=== PATIENT | female | born 1980 | race Caucasian/White ===

== ENCOUNTER 2016-09-27 18:43 | Emergency (ER) | payer MEDICARE, MEDICAID ==
[2016-09-27] MEDS ORDERED: Sodium Chloride 0.9% 10 ML Syringe FLUSH PRN (19:24)
[2016-09-27] MEDS ORDERED: Sodium Chloride 0.9% 1,000 ML IV SCH (19:30)
[2016-09-27 23:28] VITALS: BP 126/91
--- NOTE | 2016-09-27 23:47 | EDM.PDOC ---
ED HPI GENERAL MEDICAL PROBLEM - General Chief Complaint: Neurological Problem Stated Complaint: MEDICAL VIA NORTH Time Seen by Provider: 09/27/16 19:16 Source of Information: Reports: Patient, EMS, Significant Other History Limitations: Reports: No Limitations - History of Present Illness INITIAL COMMENTS - FREE TEXT/NARRATIVE: This lady arrived via EMS. The history is that she's had several seizure-like episodes during the day. She has been off of Keppra for some time. She is well known to the ER and there is the belief that it's probably and at situation of pseudoseizures. The patient is not able to give any kind of history. 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 OB/BYN History: ovarian cystectomy Musculoskeletal History: Reports: Back Pain, Chronic Other Musculoskeletal History: elbow,ribs Other Neuro History: Pseudo-seizures Psychiatric History: Reports: Anxiety Other Psychiatric History: pseudo-seizures Oncologic (Cancer) History: Reports: Other (See Below) Other Oncologic History: melanoma left shoulder - Infectious Disease History Infectious Disease History: Reports: Chicken Pox - Past Surgical History HEENT Surgical History: Reports: Other (See Below) GI Surgical History: Reports: Appendectomy, Cholecystectomy Female Surgical History: Reports: Section Social & Family History - Tobacco Use Smoking Status *Q: Current Every Day Smoker Years of Tobacco use: 17 Packs/Tins Daily: 1 Used Tobacco, but Quit: No Second Hand Smoke Exposure: Yes - Caffeine Use Caffeine Use: Reports: Soda - Alcohol Use Days Per Week of Alcohol Use: 0 - Recreational Drug Use Recreational Drug Use: No ED ROS GENERAL - Review of Systems Review Of Systems: Unable To Obtain - Physical Exam Exam: See Below Exam Limited By: Altered Mental Status General Appearance: Other (The patient is awake but minimally responsive. She makes some motion says that she is trying to talk.) Eye Exam: Bilateral Eye: Normal Inspection Throat/Mouth: Normal Inspection Head Exam: Atraumatic Neck: Normal Inspection Respiratory/Chest: Lungs Clear Cardiovascular: Regular Rate, Rhythm GI/Abdominal: Non-Tender Neuro Exam (Abbreviated): Other (Patient is awake she may be post ictal.) DTR: 2+: Bicep (R), Bicep (L), Patella (R), Patella (L) Back Exam: Normal Inspection Extremities: Normal Inspection Skin Exam: Warm, Dry Course - Vital Signs Last Recorded V/S: Last Vital Signs Temp 36.7 C 09/27/16 23:28 Pulse 77 09/27/16 23:28 Resp 15 09/27/16 23:28 BP 126/91 H 09/27/16 23:28 Pulse Ox 96 09/27/16 23:28 - Orders/Labs/Meds Orders: Active Orders 24 hr Category Date Time Status Sodium Chloride 0.9% [Normal Saline] 1,000 ml Med 09/27/16 19:30 Active IV ASDIRECTED Sodium Chloride 0.9% [Saline Flush] Med 09/27/16 19:24 Active 10 ml FLUSH ASDIRECTED PRN Saline Lock Insert [OM.PC] Urgent Oth 09/27/16 19:23 Ordered Medication Orders Sodium Chloride (Normal Saline) 1,000 mls @ 999 mls/hr IV ASDIRECTED SABRINA Last Admin: 09/27/16 19:37 Dose: 999 mls/hr Sodium Chloride (Saline Flush) 10 ml FLUSH ASDIRECTED PRN PRN Reason: Keep Vein Open Last Admin: 09/27/16 19:37 Dose: 10 ml Labs: Laboratory Tests 09/27/16 09/27/16 09/27/16 Range/Units 19:37 19:37 20:29 WBC 5.6 (4.5-11.0) K/uL RBC 4.33 (3.30-5.50) M/uL Hgb 14.2 D (12.0-15.0) g/dL Hct 41.0 (36.0-48.0) % MCV 95 (80-98) fL MCH 33 H (27-31) pg MCHC 35 (32-36) % Plt Count 127 L (150-400) K/uL Neut % (Auto) 66 (36-66) % Lymph % (Auto) 27 (24-44) % Gaston % (Auto) 5 (2-6) % Eos % (Auto) 2 (2-4) % Baso % (Auto) 1 (0-1) % Sodium 143 (140-148) mmol/L Potassium 3.8 (3.6-5.2) mmol/L Chloride 108 (100-108) mmol/L Carbon Dioxide 24 (21-32) mmol/L Anion Gap 11.2 (5.0-14.0) mmol/L BUN 7 (7-18) mg/dL Creatinine 0.7 (0.6-1.0) mg/dL Est Cr Clr Drug Dosing 97.57 mL/min Estimated GFR (MDRD) > 60 (>60) Glucose 97 (74-106) mg/dL Calcium 9.0 (8.5-10.1) mg/dL Total Bilirubin 0.7 (0.2-1.0) mg/dL AST 31 (15-37) U/L ALT 36 (12-78) U/L Alkaline Phosphatase 54 (46-116) U/L Total Protein 7.3 (6.4-8.2) g/dL Albumin 4.0 (3.4-5.0) g/dL Globulin 3.3 (2.3-3.5) g/dL Albumin/Globulin Ratio 1.2 (1.2-2.2) Urine Color Yellow Urine Appearance Clear Urine pH 7.0 (4.5-8.0) Ur Specific Stanton 1.010 (1.008-1.030) Urine Protein Negative (NEGATIVE) mg/dL Urine Glucose (UA) Normal (NEGATIVE) mg/dL Urine Ketones Negative (NEGATIVE) mg/dL Urine Occult Blood Moderate (NEGATIVE) Urine Nitrite Negative (NEGATIVE) Urine Bilirubin Negative (NEGATIVE) Urine Urobilinogen Normal (NORMAL) mg/dL Ur Leukocyte Esterase Negative (NEGATIVE) Urine RBC 0-5 (0-5) Urine WBC 0-5 (0-5) Ur Epithelial Cells Moderate Amorphous Sediment Few Urine Bacteria Few Urine Mucus Few Meds: Medications Generic Name Dose Route Start Last Admin Trade Name Freq PRN Reason Stop Dose Admin Sodium Chloride 1,000 mls @ 999 mls/hr 09/27/16 19:30 09/27/16 19:37 Normal Saline IV 999 mls/hr ASDIRECTED SABRINA Administration Sodium Chloride 10 ml 09/27/16 19:24 09/27/16 19:37 Saline Flush FLUSH 10 ml ASDIRECTED PRN Administration Keep Vein Open - Re-Assessments/Exams Free Text/Narrative Re-Assessment/Exam: 09/27/16 23:45 Basic labs were done on this patient. She also received 1 L IV normal saline. We continued to observe her in the ER. At one point a neighbor came in to see her and at that time she had a seizure-like episode. I examined her during that episode and believe this is a pseudoseizure. Note that the patient received a dose of Versed by EMS on the way and so when she arrived she was sedated. Departure - Departure Time of Disposition: 23:46 Disposition: Home, Self-Care 01 Condition: Fair Clinical Impression: Pseudoseizure - Discharge Information Forms: ED Department Discharge Additional Instructions: Continue taking the Keppra that you were previously prescribed. Follow-up with your doctor as needed. Be sure you drink plenty of liquids every day - My Orders Last 24 Hours: My Active Orders 09/27/16 19:23 Saline Lock Insert [OM.PC] Urgent 09/27/16 19:24 Sodium Chloride 0.9% [Saline Flush] 10 ml FLUSH ASDIRECTED PRN 09/27/16 19:30 Sodium Chloride 0.9% [Normal Saline] 1,000 ml IV ASDIRECTED - Assessment/Plan Last 24 Hours: My Active Orders 09/27/16 19:23 Saline Lock Insert [OM.PC] Urgent 09/27/16 19:24 Sodium Chloride 0.9% [Saline Flush] 10 ml FLUSH ASDIRECTED PRN 09/27/16 19:30 Sodium Chloride 0.9% [Normal Saline] 1,000 ml IV ASDIRECTED
== END 2016-09-27 23:50 | disposition home or self-care (01) ==
LOC: JP.ED 18:43
DX: R29.818 Other symptoms and signs involving the nervous system (principal); F41.9 Anxiety disorder, unspecified; F17.210 Nicotine dependence, cigarettes, uncomplicated; Z90.49 Acquired absence of other specified parts of digestive tract; Z98.890 Other specified postprocedural states; Z79.2 Long term (current) use of antibiotics; Z88.5 Allergy status to narcotic agent; Z88.8 Allergy status to other drugs, medicaments and biological substances; Z79.899 Other long term (current) drug therapy
CPT/HCPCS: 36415; 80053; 81001; 85025; 96360; 96361; 99284; J7040; J7050

== ENCOUNTER 2016-11-29 16:55 | Emergency (ER) | payer MEDICARE, MEDICAID ==
[2016-11-29] MEDS ORDERED: Ketorolac 30 MG/ML SDV IVPUSH ONE (17:26)
[2016-11-29] MEDS ORDERED: Sodium Chloride 0.9% 1,000 ML IV SCH (17:30)
--- NOTE | 2016-11-29 17:38 | EDM.PDOCBH ---
ED HPI GENERAL MEDICAL PROBLEM - General Chief Complaint: Neurological Problem Stated Complaint: SEIZURE VIA NORTH Time Seen by Provider: 11/29/16 17:20 Source of Information: Reports: Patient, EMS - History of Present Illness INITIAL COMMENTS - FREE TEXT/NARRATIVE: 36-year-old female with a known history of pseudoseizures, has been under increased stress lately because of some neck pain and shoulder discomfort that has worsened over the past several weeks. Today she called a relative and told them to come and get her son because she "just didn't feel right". Then she apparently had brief seizure activity lasting 1-3 seconds so an ambulance was called. In route she was given 2.5 mg of midazolam IV. She has no postictal state. She has not been recently been ill with a fever, nausea or vomiting or shortness of breath. Onset: Unknown/Unsure Location: Reports: Generalized Severity: Mild Associated Symptoms: Reports: Other (Anxiety) Shoulder Pain Score (Numeric/FACES): 5 Head Pain Score (Numeric/FACES): 5 - Related Data Allergies Allergy/AdvReac Type Severity Reaction Status Date / Time tramadol Allergy Severe Seizure Verified 11/29/16 17:00 metoprolol Allergy Cannot Verified 11/29/16 17:00 Remember morphine Allergy Respiratory Verified 11/29/16 17:00 Distress clonazepam [From Klonopin] AdvReac dysuria Verified 11/29/16 17:00 Home Meds: Home Meds levETIRAcetam [Keppra] 500 mg PO BID 08/02/15 [History] Naproxen [Naproxen] 1 tab PO ASDIRECTED PRN 11/29/16 [History] tiZANidine [Zanaflex] 1 tab PO Q4H PRN 11/29/16 [History] Past Medical History Other HEENT History: Multiple dental caries Other Respiratory History: trach at age 6 [employer]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 OB/BYN History: ovarian cystectomy Musculoskeletal History: Reports: Back Pain, Chronic, Fracture Other Musculoskeletal History: fx elbow,ribs Other Neuro History: Pseudo-seizures Psychiatric History: Reports: Anxiety Other Psychiatric History: pseudo-seizures Oncologic (Cancer) History: Reports: Other (See Below) Other Oncologic History: melanoma left shoulder - Infectious Disease History Infectious Disease History: Reports: Chicken Pox - Past Surgical History GI Surgical History: Reports: Appendectomy, Cholecystectomy Female Surgical History: Reports: Section Social & Family History - Tobacco Use Smoking Status *Q: Light Tobacco Smoker Years of Tobacco use: 28 Packs/Tins Daily: 1 Used Tobacco, but Quit: No Second Hand Smoke Exposure: Yes - Caffeine Use Caffeine Use: Reports: Soda - Alcohol Use Days Per Week of Alcohol Use: 0 - Recreational Drug Use Recreational Drug Use: No ED ROS GENERAL - Review of Systems Review Of Systems: See Below Constitutional: Reports: Weakness. Denies: Fever, Chills Respiratory: Denies: Shortness of Breath, Hemoptysis Endocrine: Reports: Fatigue GI/Abdominal: Denies: Nausea, Vomiting Musculoskeletal: Reports: Muscle Pain (generalized) Neurological: Reports: Difficulty Walking, Weakness Psychiatric: Reports: Anxiety, Depression ED EXAM, BEHAVIORAL HEALTH - Physical Exam Exam: See Below Exam Limited By: No Limitations General Appearance: Alert, No Apparent Distress Eye Exam: Bilateral Eye: EOMI Throat/Mouth: Other (advanced dental caries) Neck: Other (complains of tenderness with palpation of the paracervical spinous muscles) Respiratory/Chest: No Respiratory Distress, Lungs Clear Cardiovascular: Regular Rate, Rhythm Neurological: No Motor/Sensory Deficits Psychiatric: Depressed Mood, Restless, Other (very anxious despite the depressed mood) COURSE, BEHAVIORAL HEALTH COMP - Course Vital Signs: Last Vital Signs Temp 99.3 F 11/29/16 17:10 Pulse 85 11/29/16 17:53 Resp 12 11/29/16 17:53 BP 125/84 11/29/16 17:53 Pulse Ox 96 11/29/16 17:53 Orders, Labs, Meds: Laboratory Tests 11/29/16 11/29/16 Range/Units 17:42 17:42 WBC 5.1 (4.5-11.0) K/uL RBC 4.35 (3.30-5.50) M/uL Hgb 14.1 (12.0-15.0) g/dL Hct 40.4 (36.0-48.0) % MCV 93 (80-98) fL MCH 32 H (27-31) pg MCHC 35 (32-36) % Plt Count 194 (150-400) K/uL Neut % (Auto) 64 (36-66) % Lymph % (Auto) 28 (24-44) % Clayton % (Auto) 7 H (2-6) % Eos % (Auto) 1 L (2-4) % Baso % (Auto) 1 (0-1) % Sodium 142 (140-148) mmol/L Potassium 3.3 L (3.6-5.2) mmol/L Chloride 109 H (100-108) mmol/L Carbon Dioxide 22 (21-32) mmol/L Anion Gap 14.3 H (5.0-14.0) mmol/L BUN 9 (7-18) mg/dL Creatinine 0.7 (0.6-1.0) mg/dL Est Cr Clr Drug Dosing TNP Estimated GFR (MDRD) > 60 (>60) Glucose 96 (74-106) mg/dL Calcium 8.9 (8.5-10.1) mg/dL Medications Discontinued Medications Generic Name Dose Route Start Last Admin Trade Name Freq PRN Reason Stop Dose Admin Sodium Chloride 1,000 mls @ 1,000 mls/hr 11/29/16 17:30 11/29/16 17:51 Normal Saline IV 1,000 mls/hr ASDIRECTED SABRINA Administration Ketorolac Tromethamine 30 mg 11/29/16 17:26 11/29/16 17:51 Toradol IVPUSH 11/29/16 17:27 30 mg ONETIME ONE Administration Re-Assessment/Re-Exam: Patient will be given 1 L of normal saline along with 30 mg of Toradol IV. She was reassured that physically she's fine, we will check a CBC and BMP for additional reassurance. No more antiseizure medication is needed labs were normal. Patient was reassured and discharged. Departure - Departure Time of Disposition: 18:28 Disposition: Home, Self-Care 01 Condition: Good Clinical Impression: Pseudoseizure Chronic pain Qualifiers: Chronic pain type: chronic pain syndrome Qualified Code(s): G89.4 - Chronic pain syndrome - Discharge Information Instructions: Chronic Pain Referrals: Clayton Duron MD [Primary Care Provider] - Forms: ED Department Discharge Care Plan Goals: Continue your current medications and try to stay active. Keep your appointment with physical therapy on as scheduled.
[2016-11-29 17:53] VITALS: BP 125/84
== END 2016-11-29 18:27 | disposition home or self-care (01) ==
LOC: JP.ED 16:55
DX: R29.818 Other symptoms and signs involving the nervous system (principal); G89.4 Chronic pain syndrome; F17.210 Nicotine dependence, cigarettes, uncomplicated; Z88.5 Allergy status to narcotic agent; Z88.8 Allergy status to other drugs, medicaments and biological substances; Z90.49 Acquired absence of other specified parts of digestive tract
CPT/HCPCS: 36415; 80048; 85025; 96374; 99284; J1885; J7040

== ENCOUNTER 2016-12-27 22:13 | Emergency (ER) | payer MEDICARE, MEDICAID ==
[2016-12-27 22:39] VITALS: BP 153/100
[2016-12-27] MEDS ORDERED: Ketorolac 60 MG/2 ML SDV IM ONE (23:10)
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
--- NOTE | 2016-12-28 08:57 | CR ---
Shoulder Comp Rt HISTORY: Injury COMPARISON: None FINDINGS: No fracture or dislocation. No bony destructive process seen.
== END 2016-12-28 00:56 | disposition home or self-care (01) ==
LOC: JP.ED 22:13
DX: S49.91XA Unspecified injury of right shoulder and upper arm, initial encounter (principal); Z88.5 Allergy status to narcotic agent; Z88.8 Allergy status to other drugs, medicaments and biological substances; W50.0XXA Accidental hit or strike by another person, initial encounter
CPT/HCPCS: 73030; 96372; 99284; J1885; 99283

== ENCOUNTER 2016-12-28 20:28 | Emergency (ER) | payer MEDICARE, MEDICAID ==
[2016-12-28 20:46] VITALS: BP 117/85
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
== END 2016-12-28 22:18 | disposition home or self-care (01) ==
LOC: JP.ED 20:28
DX: S46.911A Strain of unspecified muscle, fascia and tendon at shoulder and upper arm level, right arm, initial encounter (principal); F17.210 Nicotine dependence, cigarettes, uncomplicated; Z88.5 Allergy status to narcotic agent; Z88.8 Allergy status to other drugs, medicaments and biological substances; X58.XXXA Exposure to other specified factors, initial encounter
CPT/HCPCS: 99283; 99284

== ENCOUNTER 2017-05-23 21:15 | Emergency (ER) | payer MEDICARE, MEDICAID ==
[2017-05-23 21:31] VITALS: BP 135/88
[2017-05-23] MEDS ORDERED: Acetaminophen/HYDROcodone 325-5 MG Tab PO ONE (22:05)
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
--- NOTE | 2017-05-24 09:05 | CR ---
Lumbar Spine 2 or 3V CLINICAL HISTORY: Pain, injury FINDINGS: The vertebral body heights are maintained. Disc spaces and alignment are maintained. There is small posterior fusion defect at L5. Transverse and spinous processes and pedicles appear intact IMPRESSION: No fracture or subluxation
--- NOTE | 2017-05-24 09:09 | CR ---
Thoracic Spine 2V CLINICAL HISTORY: Back pain, injury FINDINGS: There is a mild lower thoracic levoscoliosis. The vertebral bodies are normal in height. Th ere is no significant osteophytosis. The pedicles are unremarkable. Impression: No fracture or subluxation Levoscoliosis
--- NOTE | 2017-05-24 09:13 | CR ---
Wrist Comp Min 3V Rt CLINICAL HISTORY: Pain, trauma FINDINGS: The radius and ulna appear intact. The metacarpal joint is maintained. There is mild deform ity of the scaphoid. No fracture line is identified. This may be positional. Impression: No fracture or subluxation identified Scaphoid deformity may be positional. If clinically relevant, additional views should be considered
== END 2017-05-23 23:48 | disposition home or self-care (01) ==
LOC: JP.ED 21:15
DX: S39.012A Strain of muscle, fascia and tendon of lower back, initial encounter (principal); S29.012A Strain of muscle and tendon of back wall of thorax, initial encounter; S63.501A Unspecified sprain of right wrist, initial encounter; F17.210 Nicotine dependence, cigarettes, uncomplicated; Z88.5 Allergy status to narcotic agent; Z88.8 Allergy status to other drugs, medicaments and biological substances; Z79.899 Other long term (current) drug therapy; X50.1XXA Overexertion from prolonged static or awkward postures, initial encounter
CPT/HCPCS: 72070; 72100; 73110; 81025; 99283; 99284; A9270

== ENCOUNTER 2017-08-21 15:31 | Emergency (ER) | payer MEDICAID, MEDICARE | END 2017-08-21 17:27 | disposition left against medical advice (07) | LOC: JP.ED 15:31 | DX: Z53.21 Procedure and treatment not carried out due to patient leaving prior to being seen by health care provider (principal) ==

== ENCOUNTER 2017-08-26 21:56 | Emergency (ER) | payer MEDICARE, MEDICAID ==
[2017-08-26 23:07] VITALS: BP 123/84
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
--- NOTE | 2017-08-28 09:12 | CR ---
FOOT RIGHT 3 views CLINICAL HISTORY:Injury FINDINGS:No fracture or osseous lesion identified. There is no dislocation. Impression: Negative
== END 2017-08-27 00:12 | disposition home or self-care (01) ==
LOC: JP.ED 21:56
DX: S90.31XA Contusion of right foot, initial encounter (principal); F17.210 Nicotine dependence, cigarettes, uncomplicated; Z88.5 Allergy status to narcotic agent; Z88.8 Allergy status to other drugs, medicaments and biological substances; Z79.899 Other long term (current) drug therapy; W50.0XXA Accidental hit or strike by another person, initial encounter
CPT/HCPCS: 73630-26-RT; 73630-RT; 99284

== ENCOUNTER 2017-09-08 21:53 | Emergency (ER) | payer MEDICARE, MEDICAID ==
[2017-09-08 22:06] VITALS: BP 148/92
--- NOTE | 2017-09-08 22:18 | EDM.PDOCBH ---
ED HPI GENERAL MEDICAL PROBLEM - General Chief Complaint: Neurological Problem Stated Complaint: SEIZURE VIA [place] Time Seen by Provider: 09/08/17 22:17 Source of Information: Reports: Patient History Limitations: Reports: No Limitations - History of Present Illness INITIAL COMMENTS - FREE TEXT/NARRATIVE: pt had siezure like activity. and was brought by ambulance . She does have psudoseizures that often are brought on by stress. She picked up her son at a [employer] [facility] today and then he started to act out some after they got home. Onset: Today Duration: Hour(s): Location: Reports: Generalized, Other ( Pt was shaking all over on arrival. She did not chew her tongue and she was not incontinent of urine. ) Associated Symptoms: Reports: No Other Symptoms - Related Data Allergies Allergy/AdvReac Type Severity Reaction Status Date / Time tramadol Allergy Severe Seizure Verified 09/08/17 22:07 metoprolol Allergy Cannot Verified 09/08/17 22:07 Remember morphine Allergy Respiratory Verified 09/08/17 22:07 Distress clonazepam [From Klonopin] AdvReac dysuria Verified 09/08/17 22:07 Home Meds: Home Meds levETIRAcetam [Keppra] 500 mg PO BID 08/02/15 [History] Cyclobenzaprine [Flexeril] 5 - 10 mg PO TID PRN #12 tab 05/23/17 [Rx] Past Medical History Other HEENT History: Multiple dental caries Other Respiratory History: trach at age 6 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 OB/BYN History: ovarian cystectomy Musculoskeletal History: Reports: Back Pain, Chronic, Fracture Other Musculoskeletal History: fx elbow,ribs Other Neuro History: Pseudo-seizures Psychiatric History: Reports: Anxiety Other Psychiatric History: pseudo-seizures Oncologic (Cancer) History: Reports: Other (See Below) Other Oncologic History: melanoma left shoulder - Infectious Disease History Infectious Disease History: Reports: Chicken Pox - Past Surgical History GI Surgical History: Reports: Appendectomy, Cholecystectomy Female Surgical History: Reports: Section Social & Family History - Tobacco Use Smoking Status *Q: Current Status Unknown - Caffeine Use Caffeine Use: Reports: Soda - Recreational Drug Use Recreational Drug Use: No ED ROS GENERAL - Review of Systems Review Of Systems: See Below Constitutional: Reports: No Symptoms HEENT: Reports: No Symptoms Respiratory: Reports: No Symptoms Cardiovascular: Reports: No Symptoms, Palpitations GI/Abdominal: Reports: No Symptoms : Reports: No Symptoms Musculoskeletal: Reports: No Symptoms Neurological: Reports: Seizure, Other (pt does have a history of puedoseizures) ED EXAM, BEHAVIORAL HEALTH - Physical Exam Exam: See Below Text/Narrative:: pt was flogging around on arrival and this soon straightened out. Exam Limited By: No Limitations General Appearance: Alert, Mild Distress, Other (pupils are equal and reactive. She had picked up her son today so she had a stressful day. She is not sure whether she took her keppera or not. ) Ears: Normal TMs Nose: Normal Inspection Throat/Mouth: Normal Inspection Head: Atraumatic Neck: Normal Inspection Respiratory/Chest: No Respiratory Distress Cardiovascular: Regular Rate, Rhythm GI/Abdominal: Soft, Non-Tender (Female) Exam: Deferred Rectal (Female) Exam: Deferred Back Exam: Normal Inspection Extremities: Other (pt has a cam walker on the rt leg. ) Neurological: Alert Psychiatric: Alert, Normal Cognition COURSE, BEHAVIORAL HEALTH COMP - Course Vital Signs: Last Vital Signs Temp 37.6 C 09/08/17 22:02 Pulse 92 09/08/17 22:02 Resp 16 09/08/17 22:02 BP 148/92 H 09/08/17 22:02 Pulse Ox 98 09/08/17 22:02 Orders, Labs, Meds: Active Orders 24 hr Category Date Time Status UA W/MICROSCOPIC [URIN] Urgent Lab 09/08/17 23:28 Ordered levETIRAcetam [Keppra] Med 09/09/17 09:00 Once 500 mg PO BID ONE Medication Orders Levetiracetam (Keppra) 500 mg PO BID ONE Stop: 09/09/17 09:01 Laboratory Tests 09/08/17 09/08/17 09/08/17 Range/Units 22:26 22:26 23:28 WBC 6.5 (4.5-11.0) K/uL RBC 3.82 (3.30-5.50) M/uL Hgb 12.3 (12.0-15.0) g/dL Hct 36.0 (36.0-48.0) % MCV 94 (80-98) fL MCH 32 H (27-31) pg MCHC 34 (32-36) % Plt Count 213 (150-400) K/uL Neut % (Auto) 59 (36-66) % Lymph % (Auto) 33 (24-44) % Ray % (Auto) 6 (2-6) % Eos % (Auto) 1 L (2-4) % Baso % (Auto) 0 (0-1) % Sodium 142 (140-148) mmol/L Potassium 3.1 L (3.6-5.2) mmol/L Chloride 107 (100-108) mmol/L Carbon Dioxide 23 (21-32) mmol/L Anion Gap 15.1 H (5.0-14.0) mmol/L BUN 10 (7-18) mg/dL Creatinine 0.7 (0.6-1.0) mg/dL Est Cr Clr Drug Dosing 87.11 mL/min Estimated GFR (MDRD) > 60 (>60) Glucose 94 (74-106) mg/dL Calcium 8.7 (8.5-10.1) mg/dL Urine Color Yellow Urine Appearance Clear Urine pH 7.0 (4.5-8.0) Ur Specific [place] 1.010 (1.008-1.030) Urine Protein Negative (NEGATIVE) mg/dL Urine Glucose (UA) Normal (NEGATIVE) mg/dL Urine Ketones Negative (NEGATIVE) mg/dL Urine Occult Blood Negative (NEGATIVE) Urine Nitrite Negative (NEGATIVE) Urine Bilirubin Negative (NEGATIVE) Urine Urobilinogen Normal (NORMAL) mg/dL Ur Leukocyte Esterase Negative (NEGATIVE) Urine RBC 0-5 (0-5) Urine WBC 0-5 (0-5) Ur Epithelial Cells Rare Amorphous Sediment Not seen Urine Bacteria Few Urine Mucus Not seen Medications Generic Name Dose Route Start Last Admin Trade Name Freq PRN Reason Stop Dose Admin Levetiracetam 500 mg 09/09/17 09:00 Keppra PO 09/09/17 09:01 BID ONE Medical Clearance: 09/08/17 23:56 She was given keppara because she may not have taken it. She had normal labs. Departure - Departure Time of Disposition: 23:57 Disposition: Home, Self-Care 01 Condition: Fair Clinical Impression: Pseudoseizures, Anxiety - Discharge Information Referrals: PCP,None [Primary Care Provider] - Forms: ED Department Discharge Care Plan Goals: rtc if problems, be sure to take the keppara regularly - My Orders Last 24 Hours: My Active Orders 09/08/17 23:28 UA W/MICROSCOPIC [URIN] Urgent 09/09/17 09:00 levETIRAcetam [Keppra] 500 mg PO BID ONE - Assessment/Plan Last 24 Hours: My Active Orders 09/08/17 23:28 UA W/MICROSCOPIC [URIN] Urgent 09/09/17 09:00 levETIRAcetam [Keppra] 500 mg PO BID ONE
[2017-09-08] MEDS ORDERED: levETIRAcetam 250 MG Tab PO ONE (23:58)
[2017-09-09] MEDS ORDERED: levETIRAcetam 250 MG Tab PO ONE (09:00)
== END 2017-09-09 00:23 | disposition home or self-care (01) ==
LOC: JP.ED 21:53
DX: R56.9 Unspecified convulsions (principal); F41.9 Anxiety disorder, unspecified; Z88.5 Allergy status to narcotic agent; Z88.8 Allergy status to other drugs, medicaments and biological substances
CPT/HCPCS: 36415; 80048; 81001; 85025; 99284; A9270

== ENCOUNTER 2017-09-11 22:26 | Emergency (ER) | payer MEDICARE, MEDICAID ==
[2017-09-11 23:46] VITALS: BP 130/80
--- NOTE | 2017-09-11 23:58 | EDM.PDOC ---
ED HPI GENERAL MEDICAL PROBLEM - General Chief Complaint: Upper Extremity Injury/Pain Stated Complaint: INJURED LEFT HAND Time Seen by Provider: 09/11/17 23:53 Source of Information: Reports: Patient, Family, RN Notes Reviewed History Limitations: Reports: No Limitations - History of Present Illness INITIAL COMMENTS - FREE TEXT/NARRATIVE: 37-year-old female presents to the emergency department today with complaint of left wrist pain, her wrist was twisted by her child and she is now experiencing pain has full range of motion. 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 Left Hand Pain Score (Numeric/FACES): 8 - Related Data Allergies Allergy/AdvReac Type Severity Reaction Status Date / Time tramadol Allergy Severe Seizure Verified 09/11/17 23:37 metoprolol Allergy Cannot Verified 09/11/17 23:37 Remember morphine Allergy Respiratory Verified 09/11/17 23:37 Distress clonazepam [From Klonopin] AdvReac dysuria Verified 09/11/17 23:37 Home Meds: Home Meds levETIRAcetam [Keppra] 500 mg PO BID 08/02/15 [History] Cyclobenzaprine [Flexeril] 5 - 10 mg PO TID PRN #12 tab 05/23/17 [Rx] Acetaminophen [Tylenol Extra Strength] 1,000 mg PO QID PRN 09/11/17 [History] Past Medical History Other HEENT History: Multiple dental caries Respiratory History: Reports: Asthma Other Respiratory History: trach at age 6 Genitourinary History: Reports: UTI, Recurrent 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: Other OB/BYN History: ovarian cystectomy Musculoskeletal History: Reports: Back Pain, Chronic, Fracture Other Musculoskeletal History: fx elbow,ribs, recent right foot injury Other Neuro History: Pseudo-seizures Psychiatric History: Reports: Anxiety Other Psychiatric History: pseudo-seizures Oncologic (Cancer) History: Reports: Other (See Below) Other Oncologic History: melanoma left shoulder - Infectious Disease History Infectious Disease History: Reports: Chicken Pox - Past Surgical History GI Surgical History: Reports: Appendectomy, Cholecystectomy Female Surgical History: Reports: Section Social & Family History - Tobacco Use Smoking Status *Q: Current Every Day Smoker Years of Tobacco use: 18 Packs/Tins Daily: 1 - Caffeine Use Caffeine Use: Reports: Soda - Recreational Drug Use Recreational Drug Use: No Review of Systems - Review of Systems Review Of Systems: See Below Musculoskeletal: Reports: Joint Pain (Wrist pain) ED EXAM, GENERAL - Physical Exam Exam: See Below Free Text/Narrative:: Examination of left wrist I don't appreciate any erythema there is no edema noted radial pulse is +2 she has limited range of motion but it is full secondary to pain there is no tenderness at the elbow Exam Limited By: No Limitations General Appearance: Alert, WD/WN, No Apparent Distress Course - Vital Signs Last Recorded V/S: Last Vital Signs Temp 96.4 F 09/11/17 23:39 Pulse 79 09/11/17 23:39 Resp 16 09/11/17 23:39 BP 130/80 09/11/17 23:39 Pulse Ox 99 09/11/17 23:39 - Orders/Labs/Meds Orders: Active Orders 24 hr Category Date Time Status Wrist Comp Min 3V Lt [CR] Stat Exams 09/12/17 00:01 Taken DME for Discharge [COMM] Per Unit Routine Oth 09/12/17 00:19 Ordered Departure - Departure Time of Disposition: 00:20 Disposition: Home, Self-Care 01 Condition: Good Clinical Impression: Strain of left wrist Qualifiers: Encounter type: initial encounter Qualified Code(s): S66.912A - Strain of unspecified muscle, fascia and tendon at wrist and hand level, left hand, initial encounter - Discharge Information Referrals: PCP,None [Primary Care Provider] - Forms: ED Department Discharge Additional Instructions: Use Tylenol or ibuprofen as needed for pain control, continue to use the wrist splint for comfort, Please followup with your primary care provider in 3-5 days if not better, please call return to the emergency department with worsening of symptoms. - My Orders Last 24 Hours: My Active Orders 09/12/17 00:01 Wrist Comp Min 3V Lt [CR] Stat 09/12/17 00:19 DME for Discharge [COMM] Per Unit Routine - Assessment/Plan Last 24 Hours: My Active Orders 09/12/17 00:01 Wrist Comp Min 3V Lt [CR] Stat 09/12/17 00:19 DME for Discharge [COMM] Per Unit Routine Plan: Assessment Acuity = acute Site and laterality = left wrist strain Etiology = secondary twisting injury Manifestations = none Location of injury = Home Lab values = wrist x-ray I did review films myself I cannot appreciate any acute process, the official read from radiology is pending Plan She is placed in a wrist splint use Tylenol or Motrin as needed for pain control follow up with primary care 3-5 days if not better This note was dictated using [employer] recognition software please call with any questions on syntax or grammar.
--- NOTE | 2017-09-12 09:15 | CR ---
Wrist Comp Min 3V Lt CLINICAL HISTORY: Pain, trauma FINDINGS: There is no acute fracture or dislocation within the left wrist. Impression: Negative
== END 2017-09-12 00:31 | disposition home or self-care (01) ==
LOC: JP.ED 22:26
DX: S66.912A Strain of unspecified muscle, fascia and tendon at wrist and hand level, left hand, initial encounter (principal); F17.210 Nicotine dependence, cigarettes, uncomplicated; Z88.5 Allergy status to narcotic agent; Z88.8 Allergy status to other drugs, medicaments and biological substances; Z79.899 Other long term (current) drug therapy; J45.909 Unspecified asthma, uncomplicated; X50.1XXA Overexertion from prolonged static or awkward postures, initial encounter
CPT/HCPCS: 73110-26-LT; 73110-LT; 99283; 99284

== ENCOUNTER 2018-03-26 20:59 | Emergency (ER) | payer MEDICAID, MEDICARE ==
[2018-03-26 21:12] VITALS: BP 150/96
--- NOTE | 2018-03-26 21:56 | EDM.PDOC ---
ED HPI GENERAL MEDICAL PROBLEM - General Chief Complaint: Upper Extremity Injury/Pain Stated Complaint: FELL HURT SIDE Time Seen by Provider: 03/26/18 21:35 Source of Information: Reports: Patient History Limitations: Reports: No Limitations - History of Present Illness INITIAL COMMENTS - FREE TEXT/NARRATIVE: 38-year-old female stumbled over her dog striking her right chest wall on the side of her bathtub. She has pain in the right lateral chest. No shortness of breath. Onset: Sudden Duration: Hour(s): (Within the last few hours) Location: Reports: Chest Associated Symptoms: Reports: No Other Symptoms Right Thoracic Pain Score (Numeric/FACES): 10 - Related Data Allergies Allergy/AdvReac Type Severity Reaction Status Date / Time tramadol Allergy Severe Seizure Verified 03/26/18 21:06 metoprolol Allergy Cannot Verified 03/26/18 21:06 Remember morphine Allergy Respiratory Verified 03/26/18 21:06 Distress clonazepam [From Klonopin] AdvReac dysuria Verified 03/26/18 21:06 Home Meds: Home Meds levETIRAcetam [Keppra] 500 mg PO BID 08/02/15 [History] Acetaminophen [Tylenol Extra Strength] 1,000 mg PO QID PRN 09/11/17 [History] hydrOXYzine pamoate [Hydroxyzine Pamoate] 25 mg PO ASDIRECTED PRN 03/26/18 [ History] traZODone HCl [Trazodone HCl] 50 mg PO BEDTIME 03/26/18 [History] Past Medical History Other HEENT History: Multiple dental caries Respiratory History: Reports: Asthma Other Respiratory History: trach at age 6 Genitourinary History: Reports: UTI, Recurrent 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 coma for 1 month when 6yrs old Psychiatric History: Reports: Anxiety, Psych Hospitalization(s), PTSD Other Psychiatric History: pseudo-seizures Oncologic (Cancer) History: Reports: Other (See Below) Other Oncologic History: melanoma left shoulder - Infectious Disease History Infectious Disease History: Reports: Chicken Pox - Past Surgical History GI Surgical History: Reports: Appendectomy, Cholecystectomy Female Surgical History: Reports: Section Social & Family History - Tobacco Use Smoking Status *Q: Current Every Day Smoker Years of Tobacco use: 20 Packs/Tins Daily: 1 - Caffeine Use Caffeine Use: Reports: Coffee, Soda - Recreational Drug Use Recreational Drug Use: No Review of Systems - Review of Systems Review Of Systems: See Below Constitutional: Denies: Fever Respiratory: Reports: Pleuritic Chest Pain. Denies: Shortness of Breath GI/Abdominal: Denies: Abdominal Pain Skin: Denies: Bruising Neurological: Denies: Headache Psychiatric: Reports: Anxiety ED EXAM, GENERAL - Physical Exam Exam: See Below Exam Limited By: No Limitations General Appearance: Alert, Anxious, Moderate Distress, Other (Very hyper dramatic) Head: Atraumatic Respiratory/Chest: No Respiratory Distress, Lungs Clear, Other (Reacts with exquisite tenderness to palpation along the right lateral lower ribs, there is no crepitus or bruising seen) GI/Abdominal: Non-Tender Course - Vital Signs Last Recorded V/S: Last Vital Signs Temp Pulse 103 H 03/26/18 21:17 Resp 24 H 03/26/18 21:17 BP 150/96 H 03/26/18 21:17 Pulse Ox 98 03/26/18 21:17 - Orders/Labs/Meds Orders: Active Orders 24 hr Category Date Time Status Chest 2V [CR] Routine Exams 03/26/18 21:48 Taken Meds: Medications Discontinued Medications Generic Name Dose Route Start Last Admin Trade Name Freq PRN Reason Stop Dose Admin Ketorolac Tromethamine 60 mg 03/26/18 22:04 03/26/18 22:25 Toradol IM 03/26/18 22:05 60 mg ONETIME ONE Administration - Re-Assessments/Exams Free Text/Narrative Re-Assessment/Exam: 03/26/18 21:55 A two-view chest x-ray was obtained. 03/26/18 22:04 Two-view chest x-ray was normal, patient was given 60 mg of Toradol and reassured that she has a contusion and nothing more serious. She can take a regular dose of ibuprofen or naproxen over the next several days. Departure - Departure Time of Disposition: 22:36 Disposition: Home, Self-Care 01 Condition: Good Clinical Impression: Contusion of right chest wall Qualifiers: Encounter type: initial encounter Qualified Code(s): S20.211A - Contusion of right front wall of thorax, initial encounter - Discharge Information Instructions: Chest Contusion, Adult, [id number] Referrals: PCP,None [Primary Care Provider] - Forms: ED Department Discharge Care Plan Goals: Ice to the sore area for the first couple days may be beneficial. A regular dose of ibuprofen or naproxen will also help, and increase activity to normal as soon as possible. Consider rechecking in 2-3 days if not improving satisfactorily, or return sooner if worsening such as shortness of breath or fever. - My Orders Last 24 Hours: My Active Orders 03/26/18 21:48 Chest 2V [CR] Routine - Assessment/Plan Last 24 Hours: My Active Orders 03/26/18 21:48 Chest 2V [CR] Routine
[2018-03-26] MEDS ORDERED: Ketorolac 60 MG/2 ML SDV IM ONE (22:04)
--- NOTE | 2018-03-27 10:02 | CR ---
Heart size stable. No focal consolidation. There is a interstitial process which is linear and mild but appears chronic. Correlate with patient's history and correlate with any inflammatory etiologies.
== END 2018-03-26 22:36 | disposition home or self-care (01) ==
LOC: JP.ED 20:59
DX: S20.211A Contusion of right front wall of thorax, initial encounter (principal); J45.909 Unspecified asthma, uncomplicated; F17.210 Nicotine dependence, cigarettes, uncomplicated; Z88.5 Allergy status to narcotic agent; Z88.8 Allergy status to other drugs, medicaments and biological substances; Z79.899 Other long term (current) drug therapy; W54.1XXA Struck by dog, initial encounter
CPT/HCPCS: 71046; 96372; 99284; J1885

== ENCOUNTER 2018-09-12 23:35 | Emergency (ER) | payer MEDICARE, MEDICAID ==
[2018-09-13 00:34] VITALS: BP 113/87
--- NOTE | 2018-09-13 00:44 | EDM.PDOC ---
ED HPI GENERAL MEDICAL PROBLEM - General Chief Complaint: Respiratory Problem Stated Complaint: SUFFERING FROM MOLD Time Seen by Provider: 09/13/18 00:37 Source of Information: Reports: Patient, Family, RN Notes Reviewed History Limitations: Reports: No Limitations - History of Present Illness INITIAL COMMENTS - FREE TEXT/NARRATIVE: 38-year-old female presents to the emergency department today with complaint of mold in her household, she states every time she is exposed to mold she has difficulty breathing, her breathing has settled down at this time and she is wondering if there is any treatment - Related Data Allergies Allergy/AdvReac Type Severity Reaction Status Date / Time tramadol Allergy Severe Seizure Verified 09/13/18 00:30 metoprolol Allergy Cannot Verified 09/13/18 00:30 Remember morphine Allergy Respiratory Verified 09/13/18 00:30 Distress clonazepam [From Klonopin] AdvReac dysuria Verified 09/13/18 00:30 Home Meds: Home Meds levETIRAcetam [Keppra] 500 mg PO BID 08/02/15 [History] Acetaminophen [Tylenol Extra Strength] 1,000 mg PO QID PRN 09/11/17 [History] hydrOXYzine pamoate [Hydroxyzine Pamoate] 25 mg PO ASDIRECTED PRN 03/26/18 [ History] traZODone HCl [Trazodone HCl] 50 mg PO BEDTIME 03/26/18 [History] Past Medical History Other HEENT History: Multiple dental caries Respiratory History: Reports: Asthma Other Respiratory History: trach at age 6 Genitourinary History: Reports: UTI, Recurrent 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 coma for 1 month when 6yrs old Psychiatric History: Reports: Anxiety, Psych Hospitalization(s), PTSD Other Psychiatric History: pseudo-seizures Oncologic (Cancer) History: Reports: Other (See Below) Other Oncologic History: melanoma left shoulder - Infectious Disease History Infectious Disease History: Reports: Chicken Pox - Past Surgical History GI Surgical History: Reports: Appendectomy, Cholecystectomy Female Surgical History: Reports: Section Social & Family History - Tobacco Use Smoking Status *Q: Current Every Day Smoker Years of Tobacco use: 20 Packs/Tins Daily: 0.5 - Caffeine Use Caffeine Use: Reports: Soda - Recreational Drug Use Recreational Drug Use: No ED ROS GENERAL - Review of Systems Review Of Systems: See Below Constitutional: Reports: No Symptoms Respiratory: Reports: Shortness of Breath (With exposure) Cardiovascular: Reports: No Symptoms GI/Abdominal: Reports: No Symptoms ED EXAM, GENERAL - Physical Exam Exam: See Below Exam Limited By: No Limitations General Appearance: Alert, WD/WN, No Apparent Distress Respiratory/Chest: No Respiratory Distress, Lungs Clear, Normal Breath Sounds, No Accessory Muscle Use, Chest Non-Tender Cardiovascular: Regular Rate, Rhythm, No Murmur Course - Vital Signs Last Recorded V/S: Last Vital Signs Temp 98.2 F 09/13/18 00:31 Pulse 108 H 09/13/18 00:31 Resp 18 09/13/18 00:31 BP 113/87 09/13/18 00:31 Pulse Ox 94 L 09/13/18 00:31 Departure - Departure Time of Disposition: 00:42 Disposition: Home, Self-Care 01 Condition: Poor Clinical Impression: Mold exposure - Discharge Information Referrals: Clayton Duron MD [Primary Care Provider] - Additional Instructions: Use albuterol inhaler as needed recommend avoiding exposure to mold - Assessment/Plan Plan: Assessment Acuity = acute Site and laterality = asthma trigger Etiology = mold Manifestations = coughing and dyspnea when exposed Location of injury = Home Lab values = none Plan Use albuterol inhaler when needed, recommend avoid exposure to mold This note was dictated using [employer] voice recognition software please call with any questions on syntax or grammar.
== END 2018-09-13 00:50 | disposition home or self-care (01) ==
LOC: JP.ED 23:35
DX: Z77.120 Contact with and (suspected) exposure to mold (toxic) (principal); J45.909 Unspecified asthma, uncomplicated; F17.210 Nicotine dependence, cigarettes, uncomplicated; Z88.8 Allergy status to other drugs, medicaments and biological substances; Z88.5 Allergy status to narcotic agent
CPT/HCPCS: 99282

== ENCOUNTER 2019-07-31 02:32 | Emergency (ER) | payer MEDICAID, MEDICARE ==
[2019-07-31 02:42] VITALS: BP 130/82; PULSE 84
--- NOTE | 2019-07-31 02:53 | EDM.PDOC ---
ED HPI GENERAL MEDICAL PROBLEM - General Chief Complaint: Lower Extremity Injury/Pain Stated Complaint: KNEE INJURY Time Seen by Provider: 07/31/19 02:35 Source of Information: Reports: Patient History Limitations: Reports: No Limitations - History of Present Illness INITIAL COMMENTS - FREE TEXT/NARRATIVE: 39-year-old female stumbled a month ago scraping her left knee on the ground. It seemed to be getting better, she did not have it checked out because of the COVID infection concern. Tonight however she slipped on a wet floor and hit her knee again and now it hurts worse and she wants to check. She is able to ambulate with pain, her pain is mostly over the tibial tuberosity radiating through the knee into the back of the knee. There is no swelling or bruising. Onset: Sudden Duration: Hour(s): (She slipped just 2 hours ago reinjuring her knee) Location: Reports: Lower Extremity, Left Associated Symptoms: Reports: No Other Symptoms Left Knee Pain Score (Numeric/FACES): 8 - Related Data Allergies Allergy/AdvReac Type Severity Reaction Status Date / Time tramadol Allergy Severe Seizure Verified 07/31/19 02:39 metoprolol Allergy Cannot Verified 07/31/19 02:39 Remember morphine Allergy Respiratory Verified 07/31/19 02:39 Distress clonazepam [From Klonopin] AdvReac dysuria Verified 07/31/19 02:39 Home Meds: Home Meds Acetaminophen [Tylenol Extra Strength] 1,000 mg PO QID PRN 09/11/17 [History] hydrOXYzine pamoate [Hydroxyzine Pamoate] 25 mg PO ASDIRECTED PRN 03/26/18 [ History] Past Medical History HEENT History: Reports: Other (See Below) Other HEENT History: Multiple dental caries Respiratory History: Reports: Asthma Other Respiratory History: trach at age 6 Genitourinary History: Reports: UTI, Recurrent 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 coma for 1 month when 6yrs old Psychiatric History: Reports: Anxiety, Psych Hospitalization(s), PTSD Other Psychiatric History: pseudo-seizures Oncologic (Cancer) History: Reports: Other (See Below) Other Oncologic History: melanoma left shoulder - Infectious Disease History Infectious Disease History: Reports: Chicken Pox - Past Surgical History GI Surgical History: Reports: Appendectomy, Cholecystectomy Female Surgical History: Reports: Section Social & Family History - Tobacco Use Smoking Status *Q: Current Every Day Smoker Years of Tobacco use: 20 Packs/Tins Daily: 1 - Caffeine Use Caffeine Use: Reports: Soda Review of Systems - Review of Systems Review Of Systems: See Below Constitutional: Denies: Fever Respiratory: Denies: Shortness of Breath Cardiovascular: Denies: Chest Pain Skin: Denies: Bruising Neurological: Denies: Paresthesia ED EXAM, GENERAL - Physical Exam Exam: See Below Exam Limited By: No Limitations General Appearance: Alert, No Apparent Distress Head: Atraumatic Respiratory/Chest: No Respiratory Distress Extremities: Other (Both lower extremities were compared, there is no significant asymmetry, effusion or swelling of the left knee compared to the right. There is a small scar over the tibial tuberosity where her abrasion is healed from her past injury. On palpation she is sore over the anterior tibial plateau and also mild tenderness over the lateral knee. Ligaments are intact) Course - Vital Signs Last Recorded V/S: Last Vital Signs Temp 98.3 F 07/31/19 02:44 Pulse 84 07/31/19 02:44 Resp 18 07/31/19 02:44 BP 130/82 07/31/19 02:44 Pulse Ox 96 07/31/19 02:44 - Orders/Labs/Meds Orders: Active Orders 24 hr Category Date Time Status Consult to Orthopedic Clinic [CONS] Routine Cons 07/31/19 03:14 Active Knee 3V Lt [CR] Stat Exams 07/31/19 02:50 Taken DME for Discharge [COMM] Stat Oth 07/31/19 03:13 Ordered - Re-Assessments/Exams Free Text/Narrative Re-Assessment/Exam: 07/31/19 02:53 She has not had an x-ray of this knee with either of the injuries, so this was obtained. 07/31/19 03:12 X-rays negative but the patient is having problems with weightbearing and still having pain. A 3 inch Ga wrap was applied to the knee and she was fitted with crutches, and I encouraged her to see Dr. Dangelo in the next week or so to recheck her knee, she will call tomorrow for an appointment. Departure - Departure Time of Disposition: 03:34 Disposition: Home, Self-Care 01 Clinical Impression: Contusion of knee, left Qualifiers: Encounter type: initial encounter Qualified Code(s): S80.02XA - Contusion of left knee, initial encounter - Discharge Information Instructions: Contusion, [id number] Referrals: Clayton Duron MD [Primary Care Provider] - Forms: ED Department Discharge Care Plan Goals: Wear wrap on your knee for support and use crutches for the next few days until you are able to increase activity. Call Dr. Dangelo for an appointment time to check your knee. Ibuprofen should help. Sepsis Event Note - Evaluation Sepsis Screening Result: No Definite Risk - Focused Exam Vital Signs: Vital Signs Temp Pulse Resp BP Pulse Ox 07/31/19 02:44 98.3 F 84 18 130/82 96 07/31/19 02:40 98.3 F 84 18 130/82 96 Date Exam was Performed: 07/31/19 Time Exam was Performed: 04:14 - My Orders Last 24 Hours: My Active Orders 07/31/19 02:50 Knee 3V Lt [CR] Stat 07/31/19 03:13 DME for Discharge [COMM] Stat 07/31/19 03:14 Consult to Orthopedic Clinic [CONS] Routine - Assessment/Plan Last 24 Hours: My Active Orders 07/31/19 02:50 Knee 3V Lt [CR] Stat 07/31/19 03:13 DME for Discharge [COMM] Stat 07/31/19 03:14 Consult to Orthopedic Clinic [CONS] Routine
--- NOTE | 2019-07-31 09:53 | CR ---
Knee 3V Lt CLINICAL HISTORY: Fall, pain FINDINGS: No acute fracture or dislocation is noted. There are no osseous lesions. Articular surfaces are smooth. Impression: Negative
== END 2019-07-31 03:40 | disposition home or self-care (01) ==
LOC: JP.ED 02:32
DX: S80.02XA Contusion of left knee, initial encounter (principal); F17.210 Nicotine dependence, cigarettes, uncomplicated; Z88.5 Allergy status to narcotic agent; Z88.8 Allergy status to other drugs, medicaments and biological substances; W01.198A Fall on same level from slipping, tripping and stumbling with subsequent striking against other object, initial encounter
CPT/HCPCS: 73562-26-LT; 73562-LT; 99282; 99283-25

== ENCOUNTER 2019-11-08 05:51 | Emergency (ER) | payer MEDICARE ==
[2019-11-08 06:07] VITALS: BP 124/86; PULSE 101
--- NOTE | 2019-11-08 06:21 | EDM.PDOC ---
ED HPI GENERAL MEDICAL PROBLEM - General Chief Complaint: Neurological Problem Stated Complaint: MEDICAL VIA [facility] Time Seen by Provider: 11/08/19 06:15 Source of Information: Reports: Patient, EMS History Limitations: Reports: No Limitations - History of Present Illness INITIAL COMMENTS - FREE TEXT/NARRATIVE: 39-year-old female with chronic pseudoseizure problems, anxiety, drink some alcohol last night and according to the people she is staying with was having "seizures" this morning. She had recurring seizures for an hour so they called the ambulance. When EMS arrived she would not answer any of the questions, she just stared at them so they brought her in. She is now back to baseline. She is not taking seizure medication anymore because it "does not help". She feels fine, but says she does not remember anything after drinking. She only had "4 beers". Onset: Unknown/Unsure Associated Symptoms: Reports: Confusion denies pain Pain Score (Numeric/FACES): 0 - Related Data Allergies Allergy/AdvReac Type Severity Reaction Status Date / Time tramadol Allergy Severe Seizure Verified 11/08/19 05:58 metoprolol Allergy Cannot Verified 11/08/19 05:58 Remember morphine Allergy Respiratory Verified 11/08/19 05:58 Distress clonazepam [From Klonopin] AdvReac dysuria Verified 11/08/19 05:58 Home Meds: Home Meds Acetaminophen [Tylenol Extra Strength] 1,000 mg PO QID PRN 09/11/17 [History] hydrOXYzine pamoate [Hydroxyzine Pamoate] 25 mg PO ASDIRECTED PRN 03/26/18 [History] Hydrocodone/Acetaminophen [[place] 5-325 Tablet] 2 each PO Q6HR PRN #20 tablet 08/01/19 [Rx] diazePAM [Valium] 5 mg PO ONETIME #2 tablet 08/01/19 [Rx] Past Medical History HEENT History: Reports: Other (See Below) Other HEENT History: Multiple dental caries Respiratory History: Reports: Asthma Other Respiratory History: trach at age 6 Genitourinary History: Reports: UTI, Recurrent 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 Psychiatric History: Reports: Anxiety, Psych Hospitalization(s), PTSD, Other (See Below) Other Psychiatric History: pseudo-seizures Oncologic (Cancer) History: Reports: Other (See Below) Other Oncologic History: melanoma left shoulder - Infectious Disease History Infectious Disease History: Reports: Chicken Pox - Past Surgical History GI Surgical History: Reports: Appendectomy, Cholecystectomy Female Surgical History: Reports: Section Musculoskeletal Surgical History: Reports: None Social & Family History - Tobacco Use Smoking Status *Q: Current Every Day Smoker Years of Tobacco use: 5 Packs/Tins Daily: 1 - Caffeine Use Caffeine Use: Reports: Soda - Recreational Drug Use Recreational Drug Use: No ED ROS GENERAL - Review of Systems Review Of Systems: See Below Constitutional: Denies: Fever, Chills HEENT: Reports: Other (Advanced dental decay) Respiratory: Denies: Shortness of Breath Cardiovascular: Denies: Chest Pain, Palpitations GI/Abdominal: Denies: Nausea, Vomiting Neurological: Reports: Confusion. Denies: Headache Psychiatric: Reports: Anxiety, Depression ED EXAM, GENERAL - Physical Exam Exam: See Below Exam Limited By: No Limitations General Appearance: Alert, No Apparent Distress Eye Exam: Bilateral Eye: EOMI, PERRL Head: Atraumatic Neck: Supple, Non-Tender Respiratory/Chest: Lungs Clear Cardiovascular: Regular Rate, Rhythm Neurological: Alert, Oriented Psychiatric: Normal Affect, Normal Mood Skin Exam: Warm, Dry Course - Vital Signs Last Recorded V/S: Last Vital Signs Temp 99.1 F 11/08/19 06:07 Pulse 101 H 11/08/19 06:07 Resp 17 11/08/19 06:07 BP 124/86 11/08/19 06:07 Pulse Ox 95 11/08/19 06:07 - Orders/Labs/Meds Labs: Laboratory Tests 11/08/19 11/08/19 11/08/19 Range/Units 06:27 06:27 06:27 WBC 7.3 (4.5-11.0) K/uL RBC 4.02 (3.30-5.50) M/uL Hgb 13.0 (12.0-15.0) g/dL Hct 39.0 (36.0-48.0) % MCV 97 (80-98) fL MCH 32 H (27-31) pg MCHC 33 (32-36) % Plt Count 265 (150-400) K/uL Neut % (Auto) 62 (36-66) % Lymph % (Auto) 30 (24-44) % [place] % (Auto) 7 H (2-6) % Eos % (Auto) 1 L (2-4) % Baso % (Auto) 0 (0-1) % Sodium 142 (140-148) mmol/L Potassium 3.6 (3.6-5.2) mmol/L Chloride 108 (100-108) mmol/L Carbon Dioxide 21 (21-32) mmol/L Anion Gap 12.6 (5.0-14.0) mmol/L BUN 7 (7-18) mg/dL Creatinine 0.7 (0.6-1.0) mg/dL Est Cr Clr Drug Dosing 94.10 mL/min Estimated GFR (MDRD) > 60 (>60) Glucose 95 (74-106) mg/dL Calcium 8.5 (8.5-10.1) mg/dL Ethyl Alcohol 38 mg/dL - Re-Assessments/Exams Free Text/Narrative Re-Assessment/Exam: 11/08/19 06:21 EtOH, CBC and BMP were obtained. 11/08/19 06:47 Labs normal, ETOH .038. Advised to avoid alcohol in the future. Departure - Departure Time of Disposition: 06:58 Disposition: Home, Self-Care 01 Clinical Impression: Psychiatric pseudoseizure - Discharge Information Instructions: Non-Epileptic Seizures, Adult Referrals: Clayton Duron MD [Primary Care Provider] - Forms: ED Department Discharge Care Plan Goals: Avoid alcohol in the future, no medication changes are needed. Recheck with your primary provider at any time if you feel you are not back to your baseline or need further evaluation. Sepsis Event Note (ED) - Evaluation Sepsis Screening Result: No Definite Risk - Focused Exam Vital Signs: Vital Signs Temp Pulse Resp BP Pulse Ox 11/08/19 06:07 99.1 F 101 H 17 124/86 95 11/08/19 06:06 99.1 F 101 H 17 124/86 95
== END 2019-11-08 06:58 | disposition home or self-care (01) ==
LOC: JP.ED 05:51
DX: R56.9 Unspecified convulsions (principal); J45.909 Unspecified asthma, uncomplicated; F17.210 Nicotine dependence, cigarettes, uncomplicated; Z79.899 Other long term (current) drug therapy; Z88.5 Allergy status to narcotic agent; Z88.6 Allergy status to analgesic agent; Z88.8 Allergy status to other drugs, medicaments and biological substances
CPT/HCPCS: 36415; 80048; 80307; 85025; 99283; 99284

== ENCOUNTER 2020-02-01 16:52 | Emergency (ER) | payer MEDICARE ==
[2020-02-01 17:14] VITALS: BP 139/83; PULSE 93
[2020-02-01] MEDS ORDERED: Ketorolac 60 MG/2 ML SDV IM ONE (18:29)
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
--- NOTE | 2020-02-03 09:23 | CR ---
FOOT RIGHT 3 views CLINICAL HISTORY:Injury FINDINGS:No fracture or dislocation is identified. There is some anatomic variation in the base of the fifth metatarsal overriding the cuboid fifth metatarsal joint. Impression: No acute fracture
== END 2020-02-01 19:00 | disposition home or self-care (01) ==
LOC: JP.ED 16:52
DX: S90.31XA Contusion of right foot, initial encounter (principal); J45.909 Unspecified asthma, uncomplicated; F17.210 Nicotine dependence, cigarettes, uncomplicated; Z88.5 Allergy status to narcotic agent; Z88.8 Allergy status to other drugs, medicaments and biological substances; W23.0XXA Caught, crushed, jammed, or pinched between moving objects, initial encounter
CPT/HCPCS: 73630; 96372; 99283; J1885

== ENCOUNTER 2020-03-06 18:56 | Emergency (ER) | payer MEDICARE ==
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
[2020-03-06] MEDS ORDERED: LORazepam 0.5 MG Tab PO ONE (19:48)
[2020-03-07 00:23] VITALS: BP 142/81; PULSE 115
--- NOTE | 2020-03-09 09:29 | CR ---
Foot Comp Min 3V Rt CLINICAL HISTORY: Lateral tarsal tenderness FINDINGS: There is no acute fracture or dislocation within the foot. No destructive changes are present. IMPRESSION: No acute bony process.
== END 2020-03-07 00:41 ==
LOC: JP.ED 18:56
DX: R45.851 Suicidal ideations (principal); F41.9 Anxiety disorder, unspecified; N95.1 Menopausal and female climacteric states; S90.31XA Contusion of right foot, initial encounter; J45.909 Unspecified asthma, uncomplicated; Z20.828 Contact with and (suspected) exposure to other viral communicable diseases; Z88.5 Allergy status to narcotic agent; Z88.8 Allergy status to other drugs, medicaments and biological substances; Z90.49 Acquired absence of other specified parts of digestive tract; W20.8XXA Other cause of strike by thrown, projected or falling object, initial encounter
CPT/HCPCS: 36415; 73630-26-RT; 73630-RT; 80053; 80305-QW; 80307; 81025; 84443; 85025; 99284; 99285-25; A9270-GY; U0002

== ENCOUNTER 2020-05-11 14:19 | Emergency (ER) | payer MEDICARE ==
[2020-05-11] MEDS ORDERED: LORazepam 2 MG/ML SDV IVPUSH ONE (14:25)
--- NOTE | 2020-05-11 14:28 | EDM.PDOC ---
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 Her boyfriend called Dr. Duron who told him to call 911. Is not on meds for seizures. Says she has had these seizures in past since age 6. Is not currently followed by neurology. Does not drive. No tongue biting or urinary incontinence. Says she sees red today before having another seizure. Had Covid about a month ago, no illnesses since then. Has not slept well and has discussed this with Dr. Duron. 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: Other (see below) (none) Headache Pain Score (Numeric/FACES): 7 - Related Data Allergies Allergy/AdvReac Type Severity Reaction Status Date / Time tramadol Allergy Severe Seizure Verified 05/11/20 14:28 metoprolol Allergy Cannot Verified 05/11/20 14:28 Remember morphine Allergy Respiratory Verified 05/11/20 14:28 Distress clonazepam [From Klonopin] AdvReac dysuria Verified 05/11/20 14:28 Home Meds: Home Meds hydrOXYzine pamoate [Hydroxyzine Pamoate] 25 mg PO Q4HR PRN 03/06/20 [History] Gabapentin [Neurontin] 300 mg PO BEDTIME 05/11/20 [History] Past Medical History HEENT History: Reports: Other (See Below) Other HEENT History: Multiple dental caries Respiratory History: Reports: Asthma Other Respiratory History: trach at age 6 Genitourinary History: Reports: UTI, Recurrent 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 Psychiatric History: Reports: Anxiety, Psych Hospitalization(s), PTSD, Suicidal Ideation, Other (See Below) Other Psychiatric History: pseudo-seizures Oncologic (Cancer) History: Reports: Other (See Below) Other Oncologic History: melanoma left shoulder - Infectious Disease History Infectious Disease History: Reports: Chicken Pox - Past Surgical History HEENT Surgical History: Reports: Other (See Below) Other HEENT Surgeries/Procedures: trach at age 6 GI Surgical History: Reports: Appendectomy, Cholecystectomy Female Surgical History: Reports: Section Musculoskeletal Surgical History: Reports: None Social & Family History - Caffeine Use Caffeine Use: Reports: Coffee, Soda ED ROS GENERAL - Review of Systems Review Of Systems: See Below Constitutional: Reports: No Symptoms HEENT: Reports: No Symptoms Respiratory: Reports: No Symptoms Cardiovascular: Reports: No Symptoms GI/Abdominal: Reports: No Symptoms : Reports: No Symptoms, Other (current menses) Musculoskeletal: Reports: No Symptoms Skin: Reports: No Symptoms Neurological: Reports: Seizure Psychiatric: Reports: No Symptoms - Physical Exam Exam: See Below Exam Limited By: No Limitations General Appearance: Alert, WD/WN, No Apparent Distress Eye Exam: Bilateral Eye: EOMI, Normal Inspection Ears: Normal External Exam, Normal Canal, Hearing Grossly Normal Nose: Normal Inspection, No Blood Throat/Mouth: Normal Inspection, Normal Lips, Normal Oropharynx, Normal Voice, No Airway Compromise. No: Normal Teeth (poor dentition), Evidence of Tongue Biting Head Exam: Atraumatic, Normocephalic Neck: Normal Inspection Respiratory/Chest: No Respiratory Distress, Lungs Clear, Normal Breath Sounds, No Accessory Muscle Use Cardiovascular: Regular Rate, Rhythm, No Edema GI/Abdominal: Normal Bowel Sounds, Soft, Non-Tender (Female) Exam: Other (no urinary incontinence) Neuro Exam (Abbreviated): Alert, Oriented, CN II-XII Intact, Normal Cognition, No Motor/Sensory Deficits, Other (no seizures in ER) Back Exam: Normal Inspection Extremities: Normal Inspection, Normal Range of Motion, Non-Tender, No Pedal Edema Psychiatric: Normal Affect, Normal Mood Skin Exam: Warm, Dry, Intact, Normal Color, No Rash Course - Vital Signs Last Recorded V/S: Last Vital Signs Temp 36.7 C 05/11/20 14:27 Pulse 95 05/11/20 14:27 Resp 16 05/11/20 14:27 BP 134/84 05/11/20 14:27 Pulse Ox 100 05/11/20 14:27 - Orders/Labs/Meds Labs: Laboratory Tests 05/11/20 05/11/20 05/11/20 Range/Units 14:42 14:42 15:02 Sodium 144 (140-148) mmol/L Potassium 3.5 L (3.6-5.2) mmol/L Chloride 107 (100-108) mmol/L Carbon Dioxide 25 (21-32) mmol/L Anion Gap 15.5 H (5.0-14.0) mmol/L BUN 18 (7-18) mg/dL Creatinine 0.7 (0.6-1.0) mg/dL Est Cr Clr Drug Dosing 96.93 mL/min Estimated GFR (MDRD) > 60 (>60) Glucose 109 H (74-106) mg/dL Calcium 9.3 (8.5-10.1) mg/dL Magnesium 1.8 (1.8-2.4) mg/dL Urine Color (YELLOW) Urine Appearance (CLEAR) Urine pH (5.0-8.0) Ur Specific [place] (1.008-1.030) Urine Protein (NEGATIVE) mg/dL Urine Glucose (UA) (NEGATIVE) mg/dL Urine Ketones (NEGATIVE) mg/dL Urine Occult Blood (NEGATIVE) Urine Nitrite (NEGATIVE) Urine Bilirubin (NEGATIVE) Urine Urobilinogen (0.2-1.0) EU/dL Ur Leukocyte Esterase (NEGATIVE) Urine RBC (0-5) Urine WBC (0-5) Ur Epithelial Cells Amorphous Sediment Urine Bacteria Urine Mucus Urine Opiates Screen (NEGATIVE) Ur Oxycodone Screen (NEGATIVE) Urine Methadone Screen (NEGATIVE) Ur Propoxyphene Screen (NEGATIVE) Ur Barbiturates Screen (NEGATIVE) Ur Tricyclics Screen (NEGATIVE) Ur Phencyclidine Scrn (NEGATIVE) Ur Amphetamine Screen (NEGATIVE) U Methamphetamines Scrn (NEGATIVE) Urine MDMA Screen (NEGATIVE) U Benzodiazepines Scrn (NEGATIVE) U Cocaine Metab Screen (NEGATIVE) U Marijuana (THC) Screen (NEGATIVE) Ethyl Alcohol < 3 mg/dL 05/11/20 05/11/20 Range/Units 15:35 15:35 Sodium (140-148) mmol/L Potassium (3.6-5.2) mmol/L Chloride (100-108) mmol/L Carbon Dioxide (21-32) mmol/L Anion Gap (5.0-14.0) mmol/L BUN (7-18) mg/dL Creatinine (0.6-1.0) mg/dL Est Cr Clr Drug Dosing mL/min Estimated GFR (MDRD) (>60) Glucose (74-106) mg/dL Calcium (8.5-10.1) mg/dL Magnesium (1.8-2.4) mg/dL Urine Color Yellow (YELLOW) Urine Appearance Slightly cloudy A (CLEAR) Urine pH 7.0 (5.0-8.0) Ur Specific [place] 1.015 (1.008-1.030) Urine Protein Negative (NEGATIVE) mg/dL Urine Glucose (UA) Negative (NEGATIVE) mg/dL Urine Ketones Negative (NEGATIVE) mg/dL Urine Occult Blood Large H (NEGATIVE) Urine Nitrite Negative (NEGATIVE) Urine Bilirubin Negative (NEGATIVE) Urine Urobilinogen 0.2 (0.2-1.0) EU/dL Ur Leukocyte Esterase Negative (NEGATIVE) Urine RBC 30-40 H (0-5) Urine WBC Not seen (0-5) Ur Epithelial Cells Moderate Amorphous Sediment Moderate Urine Bacteria Moderate Urine Mucus Not seen Urine Opiates Screen Negative (NEGATIVE) Ur Oxycodone Screen Negative (NEGATIVE) Urine Methadone Screen Negative (NEGATIVE) Ur Propoxyphene Screen Negative (NEGATIVE) Ur Barbiturates Screen Negative (NEGATIVE) Ur Tricyclics Screen Negative (NEGATIVE) Ur Phencyclidine Scrn Negative (NEGATIVE) Ur Amphetamine Screen Negative (NEGATIVE) U Methamphetamines Scrn Negative (NEGATIVE) Urine MDMA Screen Negative (NEGATIVE) U Benzodiazepines Scrn Negative (NEGATIVE) U Cocaine Metab Screen Negative (NEGATIVE) U Marijuana (THC) Screen Presumptive positive H (NEGATIVE) Ethyl Alcohol mg/dL Meds: Medications Discontinued Medications Generic Name Dose Route Start Last Admin Trade Name Freq PRN Reason Stop Dose Admin Lorazepam 0.5 mg 05/11/20 14:25 05/11/20 14:47 Ativan IVPUSH 05/11/20 14:26 0.5 mg ONETIME ONE Administration Potassium Chloride 20 meq 05/11/20 15:02 05/11/20 15:09 Klor-Con M20 PO 05/11/20 15:03 20 meq ONETIME ONE Administration - Re-Assessments/Exams Free Text/Narrative Re-Assessment/Exam: 05/11/20 16:01 No seizures during her ER visit. Is interested in seeing a neurologist again, its been many yrs since she's seen one. Will refer for this. 05/11/20 16:02 Departure - Departure Time of Disposition: 16:15 Disposition: Home, Self-Care 01 Condition: Fair Clinical Impression: Seizure-like activity Insomnia Qualifiers: Insomnia type: unspecified Qualified Code(s): G47.00 - Insomnia, unspecified - Discharge Information *PRESCRIPTION DRUG MONITORING PROGRAM REVIEWED*: Not Applicable *COPY OF PRESCRIPTION DRUG MONITORING REPORT IN PATIENT MORELIA: Not Applicable Instructions: Seizure, Adult, [id number] Referrals: PCP,None [Primary Care Provider] - Forms: ED Department Discharge Additional Instructions: Someone from the neurologist office should contact you tomorrow about an appt. Avoid engaging in activities that would put you at risk if you had a seizure dur ing these activities. Return as needed. Sepsis Event Note (ED) - Focused Exam Vital Signs: Vital Signs Temp Pulse Resp BP Pulse Ox 05/11/20 14:27 36.7 C 95 16 134/84 100 05/11/20 14:25 36.7 C 95 16 134/84 100
[2020-05-11] MEDS ORDERED: Potassium Chloride 20 MEQ Tab.ER PO ONE (15:02)
[2020-05-11 16:30] VITALS: BP 119/79; PULSE 88
== END 2020-05-11 16:30 | disposition home or self-care (01) ==
LOC: JP.ED 14:19
DX: R25.9 Unspecified abnormal involuntary movements (principal); G47.00 Insomnia, unspecified; J45.909 Unspecified asthma, uncomplicated; Z88.5 Allergy status to narcotic agent; Z88.8 Allergy status to other drugs, medicaments and biological substances
CPT/HCPCS: 36415; 80048; 80305; 80307; 81001; 83735; 96374; 99284; A9270; J2060; 99283

== ENCOUNTER 2020-05-13 11:54 | Emergency (ER) | payer MEDICARE ==
[2020-05-13] MEDS ORDERED: Gabapentin 300 MG Cap PO ONE (11:55)
[2020-05-13] MEDS ORDERED: Acetaminophen 500 MG Tab PO ONE (12:13)
--- NOTE | 2020-05-13 12:13 | EDM.PDOC ---
ED HPI GENERAL MEDICAL PROBLEM - General Chief Complaint: Neurological Problem Stated Complaint: SEIZURE Time Seen by Provider: 05/13/20 12:05 Source of Information: Reports: Patient, EMS, Old Records History Limitations: Reports: No Limitations - History of Present Illness INITIAL COMMENTS - FREE TEXT/NARRATIVE: 40 yo female with pseudoseizures presents again today via EMS for presumed pseudoseizures. Was seen here recently and the work up in the ER was unremarkable. Is not currently on any seizure medications except gabapentin. Says she was never called with a neurology appt after her last ER visit. 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: Reports: Other (see below) (none) - Related Data Allergies Allergy/AdvReac Type Severity Reaction Status Date / Time tramadol Allergy Severe Seizure Verified 05/11/20 14:28 metoprolol Allergy Cannot Verified 05/11/20 14:28 Remember morphine Allergy Respiratory Verified 05/11/20 14:28 Distress clonazepam [From Klonopin] AdvReac dysuria Verified 05/11/20 14:28 Home Meds: Home Meds hydrOXYzine pamoate [Hydroxyzine Pamoate] 25 mg PO Q4HR PRN 03/06/20 [History] Gabapentin [Neurontin] 300 mg PO BEDTIME 05/11/20 [History] levETIRAcetam [Keppra] 500 mg PO BID #60 tab 05/13/20 [Rx] Past Medical History HEENT History: Reports: Other (See Below) Other HEENT History: Multiple dental caries Cardiovascular History: Reports: Prior Cardiac Arrest Respiratory History: Reports: Asthma, Intubation, Previous Other Respiratory History: trach at age 6 Genitourinary History: Reports: UTI, Recurrent 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 Psychiatric History: Reports: Anxiety, Psych Hospitalization(s), PTSD, Suicidal Ideation, Other (See Below) Other Psychiatric History: pseudo-seizures Oncologic (Cancer) History: Reports: Other (See Below) Other Oncologic History: melanoma left shoulder - Infectious Disease History Infectious Disease History: Reports: Chicken Pox - Past Surgical History HEENT Surgical History: Reports: Other (See Below) Other HEENT Surgeries/Procedures: trach at age 6 GI Surgical History: Reports: Appendectomy, Cholecystectomy Female Surgical History: Reports: Section Musculoskeletal Surgical History: Reports: None Social & Family History - Tobacco Use Tobacco Use Status *Q: Unknown Ever Used Tobacco - Caffeine Use Caffeine Use: Reports: Coffee, Soda ED ROS GENERAL - Review of Systems Review Of Systems: See Below Constitutional: Reports: No Symptoms HEENT: Reports: No Symptoms Respiratory: Reports: No Symptoms Cardiovascular: Reports: No Symptoms GI/Abdominal: Reports: No Symptoms : Reports: No Symptoms Musculoskeletal: Reports: No Symptoms Skin: Reports: No Symptoms Neurological: Reports: Headache, Seizure Psychiatric: Reports: No Symptoms - Physical Exam Exam: See Below Exam Limited By: No Limitations General Appearance: Alert, WD/WN, No Apparent Distress Eye Exam: Bilateral Eye: EOMI, Normal Inspection, PERRL Ears: Normal External Exam, Normal Canal, Hearing Grossly Normal, Normal TMs Nose: Normal Inspection, No Blood Throat/Mouth: Normal Inspection, Normal Lips, Normal Oropharynx, Normal Voice, No Airway Compromise Head Exam: Atraumatic, Normocephalic Neck: Normal Inspection Respiratory/Chest: No Respiratory Distress, Lungs Clear, Normal Breath Sounds, No Accessory Muscle Use Cardiovascular: Regular Rate, Rhythm, No Edema GI/Abdominal: Soft, Non-Tender Neuro Exam (Abbreviated): Alert, Oriented, CN II-XII Intact, Normal Cognition, No Motor/Sensory Deficits Back Exam: Normal Inspection Extremities: Normal Inspection, Normal Range of Motion, Non-Tender, No Pedal Edema Psychiatric: Normal Affect, Normal Mood Skin Exam: Warm, Dry, Intact, Normal Color, No Rash Course - Vital Signs Text/Narrative:: Dr. Duron called @ 1220h Last Recorded V/S: Last Vital Signs Temp 36.9 C 05/13/20 11:58 Pulse 80 05/13/20 15:53 Resp 17 05/13/20 15:53 BP 107/72 05/13/20 15:53 Pulse Ox 96 05/13/20 15:53 - Orders/Labs/Meds Meds: Medications Discontinued Medications Generic Name Dose Route Start Last Admin Trade Name Chance PRN Reason Stop Dose Admin Acetaminophen 1,000 mg 05/13/20 12:13 05/13/20 12:20 Tylenol Extra Strength PO 05/13/20 12:14 1,000 mg ONETIME ONE Administration Gabapentin 300 mg 05/13/20 11:55 05/13/20 12:20 Neurontin PO 05/13/20 11:56 300 mg ONETIME ONE Administration Levetiracetam 1,000 mg/ Sodium 110 mls @ 400 mls/hr 05/13/20 13:51 05/13/20 14:01 Chloride IV 05/13/20 14:05 400 mls/hr ONETIME ONE Administration Ondansetron HCl 4 mg 05/13/20 14:14 05/13/20 14:27 Zofran IVPUSH 05/13/20 14:15 4 mg ONETIME ONE Administration - Radiology Interpretation Free Text/Narrative:: head CT scan-4 mm well circumscribed focus L medial parietal lobe, not seen on CT of '15. CT Results Date: 05/13/20 CT Results Time: 13:52 - Re-Assessments/Exams Free Text/Narrative Re-Assessment/Exam: 05/13/20 16:59 Got Keppra 1 gm in ER IV and slept a couple hrs, no additional seizures during her stay. Departure - Departure Time of Disposition: 17:05 Disposition: Home, Self-Care 01 Condition: Fair Clinical Impression: Observed seizure-like activity - Discharge Information *PRESCRIPTION DRUG MONITORING PROGRAM REVIEWED*: Not Applicable *COPY OF PRESCRIPTION DRUG MONITORING REPORT IN PATIENT MORELIA: Not Applicable Prescriptions: levETIRAcetam [Keppra] 500 mg PO BID #60 tab Referrals: PCP,None [Primary Care Provider] - Forms: ED Department Discharge Additional Instructions: Take Keppra every 12 hrs, next dose at bedtime tonight. F/U with neurology as soon as you can. Stay in touch with Dr. Duron if you need anything in the interim and work with Dr. Duron to get this neurology referral. Sepsis Event Note (ED) - Evaluation Sepsis Screening Result: No Definite Risk - Focused Exam Vital Signs: Vital Signs Temp Pulse Resp BP Pulse Ox 05/13/20 15:53 80 17 107/72 96 05/13/20 15:23 85 18 98/60 96 05/13/20 14:53 74 19 103/68 96 05/13/20 14:00 89 18 121/83 95 05/13/20 13:00 90 18 125/87 96 05/13/20 12:53 84 24 H 111/78 100 05/13/20 12:23 90 28 H 126/90 99 05/13/20 11:58 36.9 C 94 29 H 124/83 98
--- NOTE | 2020-05-13 13:29 | CT ---
Head wo Cont CLINICAL HISTORY: Seizure COMPARISON: 2015 TECHNIQUE: Transverse scans were obtained from the base of the skull through the vertex without IV contrast on a multislice, multidetector CT scanner. Auto dosage reduction and iterative reconstruction techniques employed. FINDINGS: There is a well-circumscribed 4 mm low-attenuation focus in the medial left parietal lobe.. There is no mass effect, hemorrhage, or extraaxial collection. The basal cisterns and sulci over the convexities are normal. The ventricles are normal. IMPRESSION: 4 mm well-circumscribed focus in the left medial parietal lobe. This is of questionable significance. It was not obvious on the 2015 study. Considering the history of seizure, MRI brain complete should be considered.
[2020-05-13] MEDS ORDERED: levETIRAcetam 1,000 MG in Sodium Chloride 0.9% 100 ML IV ONE (13:51)
[2020-05-13] MEDS ORDERED: Ondansetron 4 MG/2 ML SDV IVPUSH ONE (14:14)
[2020-05-13 16:11] VITALS: BP 107/72; PULSE 80
== END 2020-05-13 18:00 | disposition home or self-care (01) ==
LOC: JP.ED 11:54
DX: R56.9 Unspecified convulsions (principal)
CPT/HCPCS: 70450; 70450-26; 99284; A9270-GY; J1953; J2405

== ENCOUNTER 2020-05-13 22:12 | Emergency (ER) | payer MEDICARE ==
[2020-05-13 22:20] VITALS: BP 132/91; PULSE 90
--- NOTE | 2020-05-13 22:36 | EDM.PDOCBH ---
ED HPI GENERAL MEDICAL PROBLEM - General Chief Complaint: Neurological Problem Stated Complaint: SEIZURES Time Seen by Provider: 05/13/20 22:27 Source of Information: Reports: EMS History Limitations: Reports: Uncooperative - History of Present Illness INITIAL COMMENTS - FREE TEXT/NARRATIVE: Carla was seen and evaluated in the ER earlier today by Dr. Rene Kc for pseudoseizures. She returns by EMS after having had "10 more seizures tonight." The patient refuses to answer questions from nursing feigning that she is unresponsive. She then asks the tech for her phone. The patient has her eyes wide open and is talking on her phone when I walked in the room and then immediately dropped the phone to her belly and closes her eyes like she is unresponsive. I initially asked her what is going on and got no response and then replied that were not going to play games tonight to which the patient started yelling and becoming agitated and fired me. The patient has a history significant for pseudoseizures and attention seeking behavior. At this point she is signing out AGAINST MEDICAL ADVICE not wanting to be evaluated. Patient was discharged to the [facility]. - Related Data Allergies Allergy/AdvReac Type Severity Reaction Status Date / Time tramadol Allergy Severe Seizure Verified 05/13/20 22:19 metoprolol Allergy Cannot Verified 05/13/20 22:19 Remember morphine Allergy Respiratory Verified 05/13/20 22:19 Distress clonazepam [From Klonopin] AdvReac dysuria Verified 05/13/20 22:19 Home Meds: Home Meds hydrOXYzine pamoate [Hydroxyzine Pamoate] 25 mg PO Q4HR PRN 03/06/20 [History] Gabapentin [Neurontin] 300 mg PO BEDTIME 05/11/20 [History] levETIRAcetam [Keppra] 500 mg PO BID #60 tab 05/13/20 [Rx] Past Medical History HEENT History: Reports: Other (See Below) Other HEENT History: Multiple dental caries Cardiovascular History: Reports: Prior Cardiac Arrest Respiratory History: Reports: Asthma, Intubation, Previous Other Respiratory History: trach at age 6 Genitourinary History: Reports: UTI, Recurrent 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 Psychiatric History: Reports: Anxiety, Psych Hospitalization(s), PTSD, Suicidal Ideation, Other (See Below) Other Psychiatric History: pseudo-seizures Oncologic (Cancer) History: Reports: Other (See Below) Other Oncologic History: melanoma left shoulder - Infectious Disease History Infectious Disease History: Reports: Chicken Pox - Past Surgical History HEENT Surgical History: Reports: Other (See Below) Other HEENT Surgeries/Procedures: trach at age 6 GI Surgical History: Reports: Appendectomy, Cholecystectomy Female Surgical History: Reports: Section Musculoskeletal Surgical History: Reports: None Social & Family History - Caffeine Use Caffeine Use: Reports: Coffee, Soda ED ROS GENERAL - Review of Systems Review Of Systems: Unable To Obtain Reason Not Obtained: Patient is not cooperative with the evaluation. ED EXAM, BEHAVIORAL HEALTH - Physical Exam Exam: See Below Reason Not Obtained: Patient refused evaluation. Neurological: Alert, Normal Cognition, No Motor/Sensory Deficits, Oriented x 3, Other (Manipulative behavior and feigning unresponsiveness. When addressed on this behavior she became aggressive, agitated, and demanded to be discharged.) COURSE, BEHAVIORAL HEALTH COMP - Course Vital Signs: Last Vital Signs Temp 36.8 C 05/13/20 22:14 Pulse 90 05/13/20 22:14 Resp 16 05/13/20 22:14 BP 132/91 H 05/13/20 22:14 Pulse Ox 97 05/13/20 22:14 Departure - Departure Time of Disposition: 22:33 Disposition: Against Medical Advice 07 Clinical Impression: History of pseudoseizure, Psychiatric pseudoseizure - Discharge Information *PRESCRIPTION DRUG MONITORING PROGRAM REVIEWED*: Not Applicable *COPY OF PRESCRIPTION DRUG MONITORING REPORT IN PATIENT MORELIA: Not Applicable Referrals: PCP,None [Primary Care Provider] - Forms: ED Department Discharge, Refusal of Care AMA Sepsis Event Note (ED) - Evaluation Sepsis Screening Result: No Definite Risk - Focused Exam Vital Signs: Vital Signs Temp Pulse Resp BP Pulse Ox 05/13/20 22:14 36.8 C 90 16 132/91 H 97
== END 2020-05-13 22:39 | disposition left against medical advice (07) ==
LOC: JP.ED 22:12
DX: F44.5 Conversion disorder with seizures or convulsions (principal); J45.909 Unspecified asthma, uncomplicated; Z79.899 Other long term (current) drug therapy; Z88.5 Allergy status to narcotic agent; Z88.8 Allergy status to other drugs, medicaments and biological substances
CPT/HCPCS: 70450; 99284; A9270; J1953; J2405

== ENCOUNTER 2020-05-17 11:51 | Emergency (ER) | payer MEDICARE ==
[2020-05-17 12:22] VITALS: BP 132/95; PULSE 90
[2020-05-17] MEDS ORDERED: Ketorolac 60 MG/2 ML SDV IM ONE (12:35)
--- NOTE | 2020-05-17 12:37 | EDM.PDOC ---
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 She states is so painful she cannot move it will not allow me to perform an exam - Related Data Allergies Allergy/AdvReac Type Severity Reaction Status Date / Time tramadol Allergy Severe Seizure Verified 05/17/20 12:10 metoprolol Allergy Cannot Verified 05/17/20 12:10 Remember morphine Allergy Respiratory Verified 05/17/20 12:10 Distress clonazepam [From Klonopin] AdvReac dysuria Verified 05/17/20 12:10 Home Meds: Home Meds hydrOXYzine pamoate [Hydroxyzine Pamoate] 25 mg PO Q4HR PRN 03/06/20 [History] Gabapentin [Neurontin] 300 mg PO BEDTIME 05/11/20 [History] levETIRAcetam [Keppra] 500 mg PO BID #60 tab 05/13/20 [Rx] Naproxen 1 tab PO BID 05/17/20 [History] Past Medical History HEENT History: Reports: Other (See Below) Other HEENT History: Multiple dental caries Cardiovascular History: Reports: Prior Cardiac Arrest Respiratory History: Reports: Asthma, Intubation, Previous Other Respiratory History: trach at age 6 Genitourinary History: Reports: UTI, Recurrent SUPERVISOR WEBBING History: Reports: Other SUPERVISOR WEBBING History: ovarian cystectomy Musculoskeletal History: Reports: Back Pain, Chronic, Fracture, Fibromyalgia Other Musculoskeletal History: fx elbow,ribs, recent right foot injury. 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 Psychiatric History: Reports: Anxiety, Psych Hospitalization(s), PTSD, Suicidal Ideation, Other (See Below) Other Psychiatric History: pseudo-seizures Oncologic (Cancer) History: Reports: Other (See Below) Other Oncologic History: melanoma left shoulder - Infectious Disease History Infectious Disease History: Reports: Chicken Pox - Past Surgical History HEENT Surgical History: Reports: Other (See Below) Other HEENT Surgeries/Procedures: trach at age 6 GI Surgical History: Reports: Appendectomy, Cholecystectomy Female Surgical History: Reports: Section Musculoskeletal Surgical History: Reports: None Social & Family History - Tobacco Use Tobacco Use Status *Q: Current Every Day Tobacco User Years of Tobacco use: 20 Packs/Tins Daily: 0.5 - Caffeine Use Caffeine Use: Reports: Coffee, Soda Review of Systems - Review of Systems Review Of Systems: See Below Respiratory: Reports: No Symptoms Cardiovascular: Reports: No Symptoms Musculoskeletal: Reports: Shoulder Pain Neurological: Reports: Seizure (Psychogenic) ED EXAM, GENERAL - Physical Exam Exam: See Below Free Text/Narrative:: Patient declines any physical exam her shoulder I do not appreciate any erythema there is no edema from observation radial pulses +2 Exam Limited By: No Limitations General Appearance: Alert, Anxious Course - Vital Signs Last Recorded V/S: Last Vital Signs Temp 97.3 F 05/17/20 12:21 Pulse 90 05/17/20 12:21 Resp 15 05/17/20 12:21 BP 132/95 H 05/17/20 12:21 Pulse Ox 99 05/17/20 12:21 - Orders/Labs/Meds Orders: Active Orders 24 hr Category Date Time Status DME for Discharge [COMM] Per Unit Routine Oth 05/17/20 13:24 Ordered Meds: Medications Discontinued Medications Generic Name Dose Route Start Last Admin Trade Name Chance PRN Reason Stop Dose Admin Cyclobenzaprine HCl 10 mg 05/17/20 13:23 05/17/20 13:29 Flexeril PO 05/17/20 13:24 10 mg ONETIME ONE Administration Fentanyl 50 mcg 05/17/20 13:23 05/17/20 13:28 Sublimaze IM 05/17/20 13:24 50 mcg ONETIME ONE Administration Ketorolac Tromethamine 60 mg 05/17/20 12:35 05/17/20 12:43 Toradol IM 05/17/20 12:36 60 mg ONETIME ONE Administration Departure - Departure Time of Disposition: 13:45 Disposition: Home, Self-Care 01 Condition: Fair Clinical Impression: Sprain of left shoulder Qualifiers: Encounter type: initial encounter Shoulder sprain type: unspecified sprain Qualified Code(s): S43.402A - Unspecified sprain of left shoulder joint, initial encounter - Discharge Information Instructions: Shoulder Sprain Referrals: Clayton Duron MD [Primary Care Provider] - Forms: ED Department Discharge Additional Instructions: Use Tylenol Motrin as needed for pain control continue with sling as needed for comfort please followup with your primary care provider in 3-5 days if not better, please call return to the emergency department with worsening of symptoms., Sepsis Event Note (ED) - Evaluation Sepsis Screening Result: No Definite Risk - Focused Exam Vital Signs: Vital Signs Temp Pulse Resp BP Pulse Ox 05/17/20 12:21 97.3 F 90 15 132/95 H 99 - My Orders Last 24 Hours: My Active Orders 05/17/20 13:24 DME for Discharge [COMM] Per Unit Routine - Assessment/Plan Last 24 Hours: My Active Orders 05/17/20 13:24 DME for Discharge [COMM] Per Unit Routine Plan: Assessment Acuity = acute Site and laterality = left shoulder strain Etiology = unknown Manifestations = none Location of injury = Home Lab values = x-ray reveals no fracture Plan Good improvement combination Toradol, fentanyl and Flexeril placed discharge home with sling follow-up primary care 3 to 5 days if not better This note was dictated using [employer] recognition software please call with any questions on syntax or grammar.
[2020-05-17] MEDS ORDERED: fentaNYL 100 MCG/2 ML SDV IM ONE (13:23)
[2020-05-17] MEDS ORDERED: Cyclobenzaprine 10 MG Tab PO ONE (13:23)
--- NOTE | 2020-05-17 13:26 | CRLCR ---
Indication: Trauma and pain Technique: Left shoulder 3 views. Comparison: None Findings: Bones: Alignment is normal. No fractures or bone lesions. Joint spaces: Unremarkable. Soft tissues: Unremarkable. Impression: No sign of acute injury. Dictated by Clayton Howell MD @ May 17 2020 1:24PM Signed by Dr. Clayton Howell @ May 17 2020 1:25PM
== END 2020-05-17 14:06 | disposition home or self-care (01) ==
LOC: JP.ED 11:51
DX: S43.402A Unspecified sprain of left shoulder joint, initial encounter (principal); J45.909 Unspecified asthma, uncomplicated; Z72.0 Tobacco use; Z88.5 Allergy status to narcotic agent; Z88.8 Allergy status to other drugs, medicaments and biological substances; Z79.899 Other long term (current) drug therapy; X58.XXXA Exposure to other specified factors, initial encounter
CPT/HCPCS: 73030; 96372; 99283; A9270; J1885; J3010

== ENCOUNTER 2020-06-01 20:11 | Emergency (ER) | payer MEDICARE, MEDICAID ==
[2020-06-01 20:29] VITALS: BP 130/86; PULSE 99
[2020-06-01] MEDS ORDERED: Ketorolac 30 MG/ML SDV IM ONE (20:37)
--- NOTE | 2020-06-01 20:42 | EDM.PDOC ---
ED HPI GENERAL MEDICAL PROBLEM - General Chief Complaint: Upper Extremity Injury/Pain Stated Complaint: PAIN RT SIDE AND HEADACHE Time Seen by Provider: 06/01/20 20:25 Source of Information: Reports: Patient, Old Records History Limitations: Reports: No Limitations - History of Present Illness INITIAL COMMENTS - FREE TEXT/NARRATIVE: 40 yo female presents with R posterior shoulder pain for a few hrs. She denies any recent pseudoseizures, falls or heavy lifting. Her pain radiates up the posterior R side of her neck and down her R arm. She took her usual meds only. Her left arm/shoulder was hurting when she was here 15 days ago. She said that just went away on its own in a few days. She still has her sling from that visit. Onset: Today, Sudden Onset Date: 06/01/20 Duration: Hour(s):, Waxing/Waning Location: Reports: Upper Extremity, Right (shoulder) Quality: Reports: Ache Severity: Moderate Improves with: Reports: Rest Worsens with: Reports: Movement Context: Reports: Other (See HPI) Associated Symptoms: Reports: No Other Symptoms Treatments BIOGEOGRAPHER: Reports: NSAIDS (naprosyn) Right Shoulder Pain Score (Numeric/FACES): 8 - Related Data Allergies Allergy/AdvReac Type Severity Reaction Status Date / Time tramadol Allergy Severe Seizure Verified 06/01/20 20:20 metoprolol Allergy Cannot Verified 06/01/20 20:20 Remember morphine Allergy Respiratory Verified 06/01/20 20:20 Distress clonazepam [From Klonopin] AdvReac dysuria Verified 06/01/20 20:20 Home Meds: Home Meds hydrOXYzine pamoate [Hydroxyzine Pamoate] 25 mg PO Q4HR PRN 03/06/20 [History] Gabapentin [Neurontin] 300 mg PO BEDTIME 05/11/20 [History] levETIRAcetam [Keppra] 500 mg PO BID #60 tab 05/13/20 [Rx] Cyclobenzaprine [Flexeril] 10 mg PO TID PRN #10 tab 05/17/20 [Rx] Naproxen 1 tab PO BID 05/17/20 [History] Past Medical History HEENT History: Reports: Other (See Below) Other HEENT History: Multiple dental caries Cardiovascular History: Reports: Prior Cardiac Arrest Respiratory History: Reports: Asthma, Intubation, Previous Other Respiratory History: trach at age 6 Genitourinary History: Reports: UTI, Recurrent DIRECTOR PHARMACY SERVICES History: Reports: Other DIRECTOR PHARMACY SERVICES History: ovarian cystectomy Musculoskeletal History: Reports: Back Pain, Chronic, Fracture, Fibromyalgia Other Musculoskeletal History: fx elbow,ribs, recent right foot injury. 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 Psychiatric History: Reports: Anxiety, Psych Hospitalization(s), PTSD, Suicidal Ideation, Other (See Below) Other Psychiatric History: pseudo-seizures Oncologic (Cancer) History: Reports: Other (See Below) Other Oncologic History: melanoma left shoulder - Infectious Disease History Infectious Disease History: Reports: Chicken Pox - Past Surgical History HEENT Surgical History: Reports: Other (See Below) Other HEENT Surgeries/Procedures: trach at age 6 GI Surgical History: Reports: Appendectomy, Cholecystectomy Female Surgical History: Reports: Section Musculoskeletal Surgical History: Reports: None Social & Family History - Caffeine Use Caffeine Use: Reports: Coffee, Soda Review of Systems - Review of Systems Review Of Systems: See Below Constitutional: Reports: No Symptoms Eyes: Reports: No Symptoms Ears: Reports: No Symptoms Nose: Reports: No Symptoms Mouth/Throat: Reports: No Symptoms Respiratory: Reports: No Symptoms Cardiovascular: Reports: No Symptoms GI/Abdominal: Reports: No Symptoms Musculoskeletal: Reports: Shoulder Pain (right) Skin: Reports: No Symptoms Neurological: Reports: No Symptoms ED EXAM, GENERAL - Physical Exam Exam: See Below Exam Limited By: No Limitations General Appearance: Alert, WD/WN, No Apparent Distress Eye Exam: Bilateral Eye: Normal Inspection Ears: Normal External Exam, Normal Canal, Hearing Grossly Normal Ear Exam: Bilateral Ear: Auricle Normal, Canal Normal Nose: Normal Inspection, No Blood Throat/Mouth: Normal Inspection, Normal Lips, Normal Oropharynx, Normal Voice, No Airway Compromise Head: Atraumatic, Normocephalic Neck: Normal Inspection Respiratory/Chest: No Respiratory Distress, Lungs Clear, Normal Breath Sounds, No Accessory Muscle Use Cardiovascular: Regular Rate, Rhythm, No Edema Extremities: Normal Inspection, Normal Range of Motion, No Pedal Edema, Other (tenderness on palpation in distribution of the R trapezius and posterior deltoid muscles. ). No: Non-Tender, Pedal Edema, Florence's Sign, Limited Range of Motion, Increased Warmth, Redness Neurological: Alert, Oriented, CN II-XII Intact, Normal Cognition, No Motor/Sensory Deficits Psychiatric: Normal Affect, Normal Mood Skin Exam: Warm, Dry, Intact, Normal Color, No Rash Course - Vital Signs Last Recorded V/S: Last Vital Signs Temp 36.8 C 06/01/20 20:33 Pulse 99 06/01/20 20:33 Resp 16 06/01/20 20:33 BP 130/86 06/01/20 20:33 Pulse Ox 98 06/01/20 20:33 - Orders/Labs/Meds Meds: Medications Discontinued Medications Generic Name Dose Route Start Last Admin Trade Name Chance PRN Reason Stop Dose Admin Ketorolac Tromethamine 30 mg 06/01/20 20:37 06/01/20 20:45 Ketorolac 30 Mg/Ml Sdv IM 06/01/20 20:38 30 mg ONETIME ONE Administration Departure - Departure Time of Disposition: 20:51 Disposition: Home, Self-Care 01 Condition: Good Clinical Impression: Right shoulder pain Qualifiers: Chronicity: acute Qualified Code(s): M25.511 - Pain in right shoulder - Discharge Information *PRESCRIPTION DRUG MONITORING PROGRAM REVIEWED*: No *COPY OF PRESCRIPTION DRUG MONITORING REPORT IN PATIENT MORELIA: No Instructions: Shoulder Pain Referrals: PCP,None [Primary Care Provider] - Forms: ED Department Discharge Additional Instructions: Continue your usual medications. Add acetaminophen up to 1000 mg every 6 hrs for added pain relief. Use Rodrigo Jauregui per package instructions to the area of pain. Use your sling on the right arm for support. F/U with your doctor and discuss with him any additional prescriptions for Flexeril. Sepsis Event Note (ED) - Evaluation Sepsis Screening Result: No Definite Risk - Focused Exam Vital Signs: Vital Signs Temp Pulse Resp BP Pulse Ox 06/01/20 20:33 36.8 C 99 16 130/86 98 06/01/20 20:27 36.8 C 99 16 130/86 98
[2020-06-01] MEDS ORDERED: Cyclobenzaprine 10 MG Tab PO ONE (20:52)
== END 2020-06-01 21:05 | disposition home or self-care (01) ==
LOC: JP.ED 20:11
DX: M25.511 Pain in right shoulder (principal); J45.909 Unspecified asthma, uncomplicated; Z88.8 Allergy status to other drugs, medicaments and biological substances; Z88.5 Allergy status to narcotic agent; Z79.899 Other long term (current) drug therapy
CPT/HCPCS: 96372; 99283; A9270; J1885

== ENCOUNTER 2020-11-23 21:18 | Emergency (ER) | payer MEDICARE, MEDICAID ==
[2020-11-23 21:35] VITALS: BP 153/96; PULSE 102
--- NOTE | 2020-11-23 21:37 | EDM.PDOC ---
ED HPI GENERAL MEDICAL PROBLEM - General Chief Complaint: Upper Extremity Injury/Pain Stated Complaint: RIGHT HAND INJURY Time Seen by Provider: 11/23/20 21:36 Source of Information: Reports: Patient History Limitations: Reports: No Limitations - History of Present Illness INITIAL COMMENTS - FREE TEXT/NARRATIVE: Carla Almeida presents amatory through triage with complaints of right hand pain that occurred after she punched a door at home after she was frustrated and got a verbal argument. Patient denies any elbow pain or wrist pain. She denies any deformity of fingers. Pain is better and decreased here with use of ice. Patient denies being physically threatened or abused. She is not or breast-feeding is not COVID vaccinated and has had no Covid symptoms. Denies any previous injury to this hand. Pain is constant and nonradiating. No numbness. She is not on blood thinners. Right Hand Pain Score (Numeric/FACES): 5 - Related Data Allergies Allergy/AdvReac Type Severity Reaction Status Date / Time tramadol Allergy Severe Seizure Verified 11/23/20 21:31 metoprolol Allergy Cannot Verified 11/23/20 21:31 Remember morphine Allergy Respiratory Verified 11/23/20 21:31 Distress clonazepam [From Klonopin] AdvReac dysuria Verified 11/23/20 21:31 Home Meds: Home Meds hydrOXYzine pamoate [Hydroxyzine Pamoate] 25 mg PO Q4HR PRN 03/06/20 [History] Gabapentin [Neurontin] 300 mg PO BEDTIME 05/11/20 [History] levETIRAcetam [Keppra] 500 mg PO BID #60 tab 05/13/20 [Rx] Naproxen 1 tab PO BID 05/17/20 [History] Past Medical History HEENT History: Reports: Other (See Below) Other HEENT History: Multiple dental caries Cardiovascular History: Reports: Prior Cardiac Arrest Respiratory History: Reports: Asthma, Intubation, Previous Other Respiratory History: trach at age 6 Genitourinary History: Reports: UTI, Recurrent MEDIA MONITOR History: Reports: Other MEDIA MONITOR History: ovarian cystectomy Musculoskeletal History: Reports: Back Pain, Chronic, Fracture, Fibromyalgia Other Musculoskeletal History: fx elbow,ribs, recent right foot injury. 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 Psychiatric History: Reports: Anxiety, Psych Hospitalization(s), PTSD, Suicidal Ideation, Other (See Below) Other Psychiatric History: pseudo-seizures Oncologic (Cancer) History: Reports: Other (See Below) Other Oncologic History: melanoma left shoulder - Infectious Disease History Infectious Disease History: Reports: Chicken Pox - Past Surgical History HEENT Surgical History: Reports: Other (See Below) Other HEENT Surgeries/Procedures: trach at age 6 GI Surgical History: Reports: Appendectomy, Cholecystectomy Female Surgical History: Reports: Section Musculoskeletal Surgical History: Reports: None Social & Family History - Tobacco Use Tobacco Use Status *Q: Current Every Day Tobacco User Years of Tobacco use: 24 Packs/Tins Daily: 0.5 - Caffeine Use Caffeine Use: Reports: Soda - Recreational Drug Use Recreational Drug Use: No Review of Systems - Review of Systems Review Of Systems: See Below (No fever, sore throat, runny nose, cough, change in taste or smell. No diarrhea. Denies any numbness. Feels safe. Denies being physically threatened or abused.) ED EXAM, GENERAL - Physical Exam Exam: See Below Exam Limited By: No Limitations General Appearance: Alert, No Apparent Distress Throat/Mouth: Other (Wearing mask) Head: Atraumatic Neck: Normal Inspection Respiratory/Chest: No Respiratory Distress, Lungs Clear Cardiovascular: Normal Peripheral Pulses, Other (Normal cap refill.) Extremities: Other (Patient has normal elbow, forearm and wrist. No scaphoid tenderness. Wrist evaluation is normal. Fingers-normal resting hand position, Normal/ flexion extension of all digits. Patient has mild tenderness to palpation over the dorsum of her hand but no localized volar bony tenderness or finger ) Neurological: Alert, Oriented, Normal Cognition, Normal Gait (Intact median radial ulnar motor and sensory.) Psychiatric: Normal Affect Skin Exam: Warm, Dry, Intact, No Rash. No: Cool Lymphatic: No Adenopathy Course - Vital Signs Text/Narrative:: MS examination. Patient has no scaphoid tenderness. The wrist is otherwise nontender. No pain with axial loading of thethumb. Full flexion-extension of all digits without deformity, no limitation of movement or rotational deficit. Patient has mild tenderness of the dorsum of the right hand. There is no volar bony tenderness of wrist, hand or fingers. fingers are normal. no lacerations. small abrasion over dorsum of hand NVI X-ray right hand 3 view my read. No fracture. No dislocation. Patient was placed in a Ga wrap for comfort. I discussed the x-ray over read process need for follow-up. If she has any ongoing pain recommend recheck in 1 week for repeat x-rays. Of note on repeat examination there is no scaphoid tenderness or pain with axial loading the thumb and fingers are quite reassuring. She is a small abrasion over the dorsum of her hand but no bony tenderness on repeat assessment with distraction. She is medically stable. Patient voiced understanding and need for follow-up. This chart was complete with voice recognition and may contain grammar, spelling or punctuation errors etc. Last Recorded V/S: Last Vital Signs Temp 36.4 C 11/23/20 21:32 Pulse 102 H 11/23/20 21:32 Resp 16 11/23/20 21:32 BP 153/96 H 11/23/20 21:32 Pulse Ox 96 11/23/20 21:32 - Orders/Labs/Meds Orders: Active Orders 24 hr Category Date Time Status Hand Comp Min 3V Rt [CR] Stat Exams 11/23/20 21:46 Taken Meds: Medications Discontinued Medications Generic Name Dose Route Start Last Admin Trade Name Freq PRN Reason Stop Dose Admin Ibuprofen 600 mg 11/23/20 21:45 11/23/20 21:50 Ibuprofen 600 Mg Tab PO 11/23/20 21:46 600 mg ONETIME ONE Administration Departure - Departure Time of Disposition: 22:12 Disposition: Home, Self-Care 01 Clinical Impression: Contusion of hand, right - Discharge Information *PRESCRIPTION DRUG MONITORING PROGRAM REVIEWED*: Not Applicable *COPY OF PRESCRIPTION DRUG MONITORING REPORT IN PATIENT MORELIA: Not Applicable Instructions: Hand Contusion, [id number] Referrals: Edin Malone NP [Primary Care Provider] - 1 Week (for repeat examination, potential repeat xrays. ) Forms: ED Department Discharge Additional Instructions: Use ice, elevation and ga wrap The xray of your hand/fingers today on preliminary results shows no signs of broken bones. At times, a small injury may not be identified on initial xrays, thus you need recheck in 7-10 days with primary MD if any ongoing pain Use motrin over the counter for pain. A radiologist will review your final xrays tomorrow. Sepsis Event Note (ED) - Evaluation Sepsis Screening Result: No Definite Risk - Focused Exam Vital Signs: Vital Signs Temp Pulse Resp BP Pulse Ox 11/23/20 21:32 36.4 C 102 H 16 153/96 H 96 - My Orders Last 24 Hours: My Active Orders 11/23/20 21:46 Hand Comp Min 3V Rt [CR] Stat - Assessment/Plan Last 24 Hours: My Active Orders 11/23/20 21:46 Hand Comp Min 3V Rt [CR] Stat
[2020-11-23] MEDS ORDERED: Ibuprofen 600 MG Tab PO ONE (21:45)
--- NOTE | 2020-11-24 09:27 | CR ---
Hand Comp Min 3V Rt CLINICAL HISTORY: Injury FINDINGS: There is no acute fracture or dislocation of the hand. Impression: Negative
== END 2020-11-23 22:19 | disposition home or self-care (01) ==
LOC: JP.ED 21:18
DX: S60.221A Contusion of right hand, initial encounter (principal); Z88.5 Allergy status to narcotic agent; Z88.8 Allergy status to other drugs, medicaments and biological substances; Z72.0 Tobacco use; W22.09XA Striking against other stationary object, initial encounter; Y92.009 Unspecified place in unspecified non-institutional (private) residence as the place of occurrence of the external cause
CPT/HCPCS: 73130; 99283; A9270

== ENCOUNTER 2021-01-19 19:25 | Emergency (ER) | payer MEDICARE, MEDICAID | END 2021-01-19 20:20 | disposition left against medical advice (07) | LOC: JP.ED 19:25 | DX: R10.9 Unspecified abdominal pain (principal); Z53.21 Procedure and treatment not carried out due to patient leaving prior to being seen by health care provider ==

== ENCOUNTER 2021-02-16 13:26 | Emergency (ER) | payer MEDICARE, MEDICAID ==
[2021-02-16 14:10] VITALS: BP 139/88; PULSE 108
--- NOTE | 2021-02-16 14:42 | EDM.PDOC ---
ED HPI GENERAL MEDICAL PROBLEM - General Chief Complaint: Abdominal Pain Stated Complaint: ABDOMINAL PAIN Time Seen by Provider: 02/16/21 14:25 Source of Information: Reports: Patient History Limitations: Reports: No Limitations - History of Present Illness INITIAL COMMENTS - FREE TEXT/NARRATIVE: 41-year-old female presents with chronic right abdominal and flank pain. Apparently this is been going on for about 3 months, she is having a work-up at the clinic including an abdominal ultrasound yesterday. She was having some pain today so called the clinic wanting the ultrasound report, they sent her to the emergency room. She has no fevers or chills, no nausea or vomiting, she is convinced that the pain is related to her uterus or ovary. Onset: Unknown/Unsure Duration: Chronic (Pain is been ongoing for 3 months) Location: Reports: Abdomen, Back Associated Symptoms: Reports: No Other Symptoms Right Back Pain Score (Numeric/FACES): 8 - Related Data Allergies Allergy/AdvReac Type Severity Reaction Status Date / Time tramadol Allergy Severe Seizure Verified 02/16/21 14:17 metoprolol Allergy Cannot Verified 02/16/21 14:17 Remember morphine Allergy Respiratory Verified 02/16/21 14:17 Distress clonazepam [From Klonopin] AdvReac dysuria Verified 02/16/21 14:17 Home Meds: Home Meds hydrOXYzine pamoate [Hydroxyzine Pamoate] 25 mg PO Q4HR PRN 03/06/20 [History] Gabapentin [Neurontin] 300 mg PO BEDTIME 05/11/20 [History] Naproxen 1 tab PO BID 05/17/20 [History] Past Medical History HEENT History: Reports: Other (See Below) Other HEENT History: Multiple dental caries Cardiovascular History: Reports: Prior Cardiac Arrest Respiratory History: Reports: Asthma, Intubation, Previous Other Respiratory History: trach at age 6 Genitourinary History: Reports: UTI, Recurrent LICENSED DIRECT ENTRY MIDWIFE History: Reports: Other LICENSED DIRECT ENTRY MIDWIFE History: ovarian cystectomy Musculoskeletal History: Reports: Back Pain, Chronic, Fracture, Fibromyalgia Other Musculoskeletal History: fx elbow,ribs, recent right foot injury. 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 Psychiatric History: Reports: Anxiety, Psych Hospitalization(s), PTSD, Suicidal Ideation, Other (See Below) Other Psychiatric History: pseudo-seizures Oncologic (Cancer) History: Reports: Other (See Below) Other Oncologic History: melanoma left shoulder - Infectious Disease History Infectious Disease History: Reports: Chicken Pox - Past Surgical History HEENT Surgical History: Reports: Other (See Below) Other HEENT Surgeries/Procedures: trach at age 6 GI Surgical History: Reports: Appendectomy, Cholecystectomy Female Surgical History: Reports: Section Musculoskeletal Surgical History: Reports: None Social & Family History - Family History Family Medical History: No Pertinent Family History - Tobacco Use Tobacco Use Status *Q: Heavy Tobacco User Years of Tobacco use: 22 Packs/Tins Daily: 0.5 - Caffeine Use Caffeine Use: Reports: Soda - Recreational Drug Use Recreational Drug Use: No ED ROS GENERAL - Review of Systems Review Of Systems: See Below Constitutional: Reports: Malaise. Denies: Fever, Chills Respiratory: Denies: Shortness of Breath, Cough Cardiovascular: Denies: Chest Pain GI/Abdominal: Reports: Abdominal Pain : Reports: Flank Pain (Right flank pain but no dysuria or increased urinary frequency) Skin: Reports: No Symptoms ED EXAM, GENERAL - Physical Exam Exam: See Below Exam Limited By: No Limitations General Appearance: Alert, Mild Distress, Other (Patient is tearful, hyper dramatic) Eye Exam: Bilateral Eye: Normal Inspection (No jaundice) Respiratory/Chest: No Respiratory Distress, Lungs Clear Cardiovascular: Regular Rate, Rhythm GI/Abdominal: Tender (Reacted with some tenderness to palpation across the right abdomen) Back Exam: Other (Difficult to examine because any palpation to the right side of her back, flank area causes her to wince with pain out of proportion to intra-abdominal pathology.) Neurological: Alert, Oriented Skin Exam: Warm, Dry Course - Vital Signs Last Recorded V/S: Last Vital Signs Temp 98 F 02/16/21 14:16 Pulse 108 H 02/16/21 14:16 Resp 18 02/16/21 14:16 BP 139/88 02/16/21 14:16 Pulse Ox 99 02/16/21 14:16 - Orders/Labs/Meds Orders: Active Orders 24 hr Category Date Time Status UA W/MICROSCOPIC [URIN] Urgent Lab 02/16/21 02:25 Received - Re-Assessments/Exams Free Text/Narrative Re-Assessment/Exam: 02/16/21 14:41 Reviewed the patient's record and called her primary provider. Apparently he discussed the ultrasound report with her yesterday, she has a very small hemorrh agic cyst but no other findings. I did order a CBC CMP and UA and when I went back into talk with the patient she had left. Departure - Departure Time of Disposition: 14:32 Disposition: Against Medical Advice 07 Clinical Impression: Abdominal pain Qualifiers: Abdominal location: right lower quadrant Qualified Code(s): R10.31 - Right lower quadrant pain - Discharge Information Instructions: Abdominal Pain, Adult, [id number] Referrals: Edin Malone NP [Primary Care Provider] - Forms: ED Department Discharge Care Plan Goals: Patient left prior to her work-up being completed. Left without instructions. Sepsis Event Note (ED) - Evaluation Sepsis Screening Result: No Definite Risk - Focused Exam Vital Signs: Vital Signs Temp Pulse Resp BP Pulse Ox 02/16/21 14:16 98 F 108 H 18 139/88 99 02/16/21 14:08 98 F 108 H 18 139/88 99 - My Orders Last 24 Hours: My Active Orders 02/16/21 02:25 UA W/MICROSCOPIC [URIN] Urgent - Assessment/Plan Last 24 Hours: My Active Orders 02/16/21 02:25 UA W/MICROSCOPIC [URIN] Urgent
== END 2021-02-16 14:34 | disposition left against medical advice (07) ==
LOC: JP.ED 13:26
DX: R10.31 Right lower quadrant pain (principal); J45.909 Unspecified asthma, uncomplicated; Z72.0 Tobacco use; Z88.5 Allergy status to narcotic agent; Z88.8 Allergy status to other drugs, medicaments and biological substances
CPT/HCPCS: 81001; 99284

== ENCOUNTER 2021-02-18 06:25 | Emergency (ER) | payer MEDICARE, MEDICAID ==
[2021-02-18] MEDS ORDERED: Sodium Chloride 0.9% 10 ML Syringe FLUSH PRN (07:41)
[2021-02-18] MEDS ORDERED: Sodium Chloride 0.9% 1,000 ML IV STA (07:41)
[2021-02-18] MEDS ORDERED: fentaNYL 100 MCG/2 ML SDV IVPUSH ONE (07:41)
--- NOTE | 2021-02-18 07:45 | EDM.PDOC ---
ED HPI GENERAL MEDICAL PROBLEM - General Chief Complaint: Abdominal Pain Stated Complaint: MEDICAL VIA [facility] Time Seen by Provider: 02/18/21 07:36 Source of Information: Reports: Patient, Old Records, RN Notes Reviewed History Limitations: Reports: No Limitations - History of Present Illness INITIAL COMMENTS - FREE TEXT/NARRATIVE: 41-year-old female presents emergency department today via EMS services for abdominal pain complaint. States the pain started about 3 days ago has increased in severity it is predominantly in the right lower quadrant. She does have a history of abdominal pain that has been ongoing for the last 3 months has been evaluated in the clinic ultrasound [place] emergency department as well as this emergency department last CT scan was beginning of December did not reveal any etiology. She states she has some nausea and vomiting pain is very intense rates it 6 out of 10 no shortness of breath or chest pain Right Lower Abdomen Pain Score (Numeric/FACES): 5 - Related Data Allergies Allergy/AdvReac Type Severity Reaction Status Date / Time morphine Allergy Severe Respiratory Verified 02/18/21 07:25 Distress tramadol Allergy Severe Seizure Verified 02/18/21 07:25 metoprolol Allergy Unknown Cannot Verified 02/18/21 07:25 Remember clonazepam [From Klonopin] AdvReac Intermediate dysuria Verified 02/18/21 07:25 Home Meds: Home Meds Gabapentin [Neurontin] 300 mg PO BEDTIME 05/11/20 [History] Naproxen 1 tab PO BID 05/17/20 [History] Dicyclomine HCl [Bentyl] 10 mg PO QID PRN 02/18/21 [History] Ibuprofen [Motrin] 400 mg PO QID PRN 02/18/21 [History] Past Medical History HEENT History: Reports: Other (See Below) Other HEENT History: Multiple dental caries Cardiovascular History: Reports: Prior Cardiac Arrest Respiratory History: Reports: Asthma, Intubation, Previous Other Respiratory History: trach at age 6 Genitourinary History: Reports: UTI, Recurrent ULTRASOUND MANAGER History: Reports: Other ULTRASOUND MANAGER History: ovarian cystectomy Musculoskeletal History: Reports: Back Pain, Chronic, Fracture, Fibromyalgia Other Musculoskeletal History: fx elbow,ribs, recent right foot injury. 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 Psychiatric History: Reports: Anxiety, Psych Hospitalization(s), PTSD, Suicidal Ideation, Other (See Below) Other Psychiatric History: pseudo-seizures Oncologic (Cancer) History: Reports: Other (See Below) Other Oncologic History: melanoma left shoulder - Infectious Disease History Infectious Disease History: Reports: Chicken Pox - Past Surgical History HEENT Surgical History: Reports: Other (See Below) Other HEENT Surgeries/Procedures: trach at age 6 GI Surgical History: Reports: Appendectomy, Cholecystectomy Female Surgical History: Reports: Section, Cystectomy Musculoskeletal Surgical History: Reports: None Social & Family History - Family History Family Medical History: No Pertinent Family History - Tobacco Use Tobacco Use Status *Q: Current Every Day Tobacco User Years of Tobacco use: 22 Packs/Tins Daily: 1 - Caffeine Use Caffeine Use: Reports: Soda - Recreational Drug Use Recreational Drug Use: No ED ROS GENERAL - Review of Systems Review Of Systems: See Below Constitutional: Reports: No Symptoms HEENT: Reports: No Symptoms Respiratory: Reports: No Symptoms Cardiovascular: Reports: No Symptoms GI/Abdominal: Reports: Abdominal Pain, Nausea, Vomiting. Denies: Constipation, Diarrhea : Reports: No Symptoms ED EXAM, GI/ABD - Physical Exam Exam: See Below Exam Limited By: No Limitations General Appearance: Alert, Mild Distress Respiratory/Chest: No Respiratory Distress, Lungs Clear, Normal Breath Sounds, No Accessory Muscle Use, Chest Non-Tender Cardiovascular: Regular Rate, Rhythm, No Murmur GI/Abdominal Exam: Normal Bowel Sounds, Soft, No Distention, No Abnormal Bruit, Tender (Right lower quadrant flank area) Course - Vital Signs Last Recorded V/S: Last Vital Signs Temp 98.4 F 02/18/21 07:21 Pulse 87 02/18/21 11:51 Resp 20 02/18/21 07:21 BP 122/73 02/18/21 11:51 Pulse Ox 96 02/18/21 07:21 - Orders/Labs/Meds Orders: Active Orders 24 hr Category Date Time Status Peripheral IV Care [RC] . DIRECTED Care 02/18/21 07:42 Active Sodium Chloride 0.9% [Saline Flush] Med 02/18/21 07:41 Active 10 ml FLUSH ASDIRECTED PRN Peripheral IV Insertion Adult [OM.PC] Urgent Oth 02/18/21 07:41 Ordered Medication Orders Sodium Chloride (Sodium Chloride 0.9% 10 Ml Syringe) 10 ml FLUSH ASDIRECTED PRN PRN Reason: Keep Vein Open Last Admin: 02/18/21 09:24 Dose: 10 ml Documented by: ANY Labs: Laboratory Tests 02/18/21 02/18/21 02/18/21 Range/Units 07:41 08:10 08:10 WBC 14.6 H (4.5-11.0) K/uL RBC 4.05 (3.30-5.50) M/uL Hgb 12.5 (12.0-15.0) g/dL Hct 36.7 (36.0-48.0) % MCV 91 (80-98) fL MCH 31 (27-31) pg MCHC 34 (32-36) % Plt Count 236 (150-400) K/uL Neut % (Auto) 85.8 H (36-66) % Lymph % (Auto) 6.8 L (24-44) % Lake % (Auto) 6.7 H (2-6) % Eos % (Auto) 0.6 L (2-4) % Baso % (Auto) 0.1 (0-1) % Sodium 136 L (140-148) mmol/L Potassium 2.9 L* (3.6-5.2) mmol/L Chloride 102 (100-108) mmol/L Carbon Dioxide 26 (21-32) mmol/L Anion Gap 10.9 (5.0-14.0) mmol/L BUN 10 (7-18) mg/dL Creatinine 0.6 (0.6-1.0) mg/dL Est Cr Clr Drug Dosing 114.42 mL/min Estimated GFR (MDRD) > 60 (>60) Glucose 107 H (74-106) mg/dL Lactic Acid 0.5 (0.4-2.0) mmol/L Calcium 8.9 (8.5-10.1) mg/dL Total Bilirubin 0.6 D (0.2-1.0) mg/dL AST 11 L (15-37) U/L ALT 23 (12-78) U/L Alkaline Phosphatase 78 (46-116) U/L Total Protein 6.9 (6.4-8.2) g/dL Albumin 3.6 (3.4-5.0) g/dL Globulin 3.3 (2.3-3.5) g/dL Albumin/Globulin Ratio 1.1 L (1.2-2.2) Lipase 88 (73-393) U/L HCG, Qual Urine Color (YELLOW) Urine Appearance (CLEAR) Urine pH (5.0-8.0) Ur Specific Speer (1.008-1.030) Urine Protein (NEGATIVE) mg/dL Urine Glucose (UA) (NEGATIVE) mg/dL Urine Ketones (NEGATIVE) mg/dL Urine Occult Blood (NEGATIVE) Urine Nitrite (NEGATIVE) Urine Bilirubin (NEGATIVE) Urine Urobilinogen (0.2-1.0) EU/dL Ur Leukocyte Esterase (NEGATIVE) Urine RBC (0-5) Urine WBC (0-5) Ur Epithelial Cells Amorphous Sediment Urine Bacteria Urine Mucus 02/18/21 02/18/21 Range/Units 08:10 08:13 WBC (4.5-11.0) K/uL RBC (3.30-5.50) M/uL Hgb (12.0-15.0) g/dL Hct (36.0-48.0) % MCV (80-98) fL MCH (27-31) pg MCHC (32-36) % Plt Count (150-400) K/uL Neut % (Auto) (36-66) % Lymph % (Auto) (24-44) % Lake % (Auto) (2-6) % Eos % (Auto) (2-4) % Baso % (Auto) (0-1) % Sodium (140-148) mmol/L Potassium (3.6-5.2) mmol/L Chloride (100-108) mmol/L Carbon Dioxide (21-32) mmol/L Anion Gap (5.0-14.0) mmol/L BUN (7-18) mg/dL Creatinine (0.6-1.0) mg/dL Est Cr Clr Drug Dosing mL/min Estimated GFR (MDRD) (>60) Glucose (74-106) mg/dL Lactic Acid (0.4-2.0) mmol/L Calcium (8.5-10.1) mg/dL Total Bilirubin (0.2-1.0) mg/dL AST (15-37) U/L ALT (12-78) U/L Alkaline Phosphatase (46-116) U/L Total Protein (6.4-8.2) g/dL Albumin (3.4-5.0) g/dL Globulin (2.3-3.5) g/dL Albumin/Globulin Ratio (1.2-2.2) Lipase (73-393) U/L HCG, Qual Negative Urine Color Yellow (YELLOW) Urine Appearance Slightly cloudy A (CLEAR) Urine pH 6.5 (5.0-8.0) Ur Specific Speer >= 1.030 (1.008-1.030) Urine Protein Negative (NEGATIVE) mg/dL Urine Glucose (UA) Negative (NEGATIVE) mg/dL Urine Ketones Negative (NEGATIVE) mg/dL Urine Occult Blood Trace-intact H (NEGATIVE) Urine Nitrite Negative (NEGATIVE) Urine Bilirubin Negative (NEGATIVE) Urine Urobilinogen 0.2 (0.2-1.0) EU/dL Ur Leukocyte Esterase Small H (NEGATIVE) Urine RBC 0-5 (0-5) Urine WBC 5-10 H (0-5) Ur Epithelial Cells Many Amorphous Sediment Few Urine Bacteria Many Urine Mucus Many Meds: Medications Generic Name Dose Route Start Last Admin Trade Name Fretiffanie PRN Reason Stop Dose Admin Sodium Chloride 10 ml 02/18/21 07:41 02/18/21 09:24 Sodium Chloride 0.9% 10 Ml Syringe FLUSH 10 ml ASDIRECTED PRN Administration Keep Vein Open Discontinued Medications Generic Name Dose Route Start Last Admin Trade Name Fretiffanie PRN Reason Stop Dose Admin Fentanyl 50 mcg 02/18/21 07:41 02/18/21 08:12 Fentanyl 100 Mcg/2 Ml Sdv IVPUSH 02/18/21 07:42 50 mcg ONETIME ONE Administration Sodium Chloride 1,000 mls @ 500 mls/hr 02/18/21 07:41 02/18/21 08:06 Normal Saline IV 02/18/21 09:40 500 mls/hr .BOLUS STA Administration Sodium Chloride 80 mls @ 3.5 mls/sec 02/18/21 08:00 02/18/21 09:24 Normal Saline IV 02/18/21 08:01 3.5 mls/sec ASDIRECTED SABRINA Administration Potassium Chloride 20 meq/ 112 mls @ 56 mls/hr 02/18/21 09:45 02/18/21 09:50 Lidocaine HCl 2 ml/ Sodium IV 02/18/21 11:44 56 mls/hr Chloride ONETIME ONE Administration Iopamidol 100 ml 02/18/21 08:00 02/18/21 09:24 Iopamidol 612 Mg/Ml 100 Ml Bottle IV 02/18/21 08:01 100 ml . DIRECTED SABRINA Administration Potassium Chloride 40 meq 02/18/21 08:23 02/18/21 09:56 Potassium Chloride 20 Meq Tab.Er PO 02/18/21 08:24 40 meq ONETIME ONE Administration Sodium Chloride 10 ml 02/18/21 07:48 02/18/21 08:06 Sodium Chloride 0.9% 10 Ml Syringe FLUSH 02/18/21 07:49 10 ml ONETIME ONE Administration Departure - Departure Time of Disposition: 12:09 Disposition: Home, Self-Care 01 Condition: Fair Clinical Impression: Functional constipation Community acquired pneumonia Qualifiers: Laterality: right Lung location: lower lobe of lung Qualified Code(s): J18.9 - Pneumonia, unspecified organism - Discharge Information Instructions: Community-Acquired Pneumonia, Adult, [id number], Constipation, Adult, [id number] Referrals: PCP,None [Primary Care Provider] - Forms: ED Department Discharge Additional Instructions: Take the full course of antibiotics, try the colonoscopy prep for a bowel cleanout, please followup with your primary care provider in 3-5 days if not better, please call return to the emergency department with worsening of symptoms. Sepsis Event Note (ED) - Evaluation Sepsis Screening Result: No Definite Risk - Focused Exam Vital Signs: Vital Signs Temp Pulse Resp BP Pulse Ox 02/18/21 11:51 87 122/73 02/18/21 10:57 93 115/70 02/18/21 07:21 98.4 F 0 L 20 127/73 96 - My Orders Last 24 Hours: My Active Orders 02/18/21 07:41 Sodium Chloride 0.9% [Saline Flush] 10 ml FLUSH ASDIRECTED PRN Peripheral IV Insertion Adult [OM.PC] Urgent 02/18/21 07:42 Peripheral IV Care [RC] . DIRECTED - Assessment/Plan Last 24 Hours: My Active Orders 02/18/21 07:41 Sodium Chloride 0.9% [Saline Flush] 10 ml FLUSH ASDIRECTED PRN Peripheral IV Insertion Adult [OM.PC] Urgent 02/18/21 07:42 Peripheral IV Care [RC] . DIRECTED Plan: Assessment Acuity = acute Site and laterality = community-acquired pneumonia right lower lobe Etiology = probable bacterial cause Manifestations = none Location of injury = Home Lab values = WBC elevated 14.6 consistent leukocytosis, potassium initially low at 2.9 consistent hypokalemia this has been replaced with combination oral and IV urinalysis contaminated CT scan demonstrates the right lower lobe pneumonia no other process in the abdomen would explain the pain however she does have a moderate amount of stool in the colon consistent with a functional constipation Plan I provided her a copy of the CT scan results plan is to treat the pneumonia we will try azithromycin for the functional constipation we will try MiraLAX colonoscopy prep, have her follow-up with her primary care in the next 3 to 5 days for reevaluation This note was dictated using [employer] voice recognition software please call with any questions on syntax or grammar.
[2021-02-18] MEDS ORDERED: Sodium Chloride 0.9% 10 ML Syringe FLUSH ONE (07:48)
[2021-02-18] MEDS ORDERED: Sodium Chloride 0.9% 80 ML IV SCH (08:00)
[2021-02-18] MEDS ORDERED: Iopamidol 612 MG/ML 100 ML Bottle IV SCH (08:00)
[2021-02-18] MEDS ORDERED: Potassium Chloride 20 MEQ Tab.ER PO ONE (08:23)
[2021-02-18] MEDS ORDERED: Potassium Chloride 20 MEQ in Premix Bag 1 BAG IV ONE (08:23)
[2021-02-18] MEDS ORDERED: Potassium Chloride 20 MEQ, Lidocaine 1% 2 ML in Sodium Chloride 0.9% 100 ML IV ONE (09:45)
--- NOTE | 2021-02-18 10:42 | CRLCT ---
For Patients: As a result of the Century Cures Act, medical imaging exams and procedure reports are released immediately into your electronic medical record. You may view this report before your referring provider. If you have questions, please contact your health care provider. Indication: Right lower quadrant pain Technique: Volumetric multidetector CT images of the abdomen and pelvis were obtained after the administration of intravenous contrast. 100 cc Isovue-300 low osmolar intravenous contrast Comparison: CT abdomen and pelvis January 19, 2021 Findings: There is right basilar pleural effusion with extensive consolidative opacity commensurate with likely infiltrate. The liver is mildly enlarged similar to previous exam. The portal vein is patent. The gallbladder is surgically absent. There is moderate rest for dilatation of the intrahepatic and common bile ducts. The spleen is normal in enhancement and size. The stomach and duodenum are grossly unremarkable. The pancreas is normal in enhancement without significant atrophy. The adrenal glands are unremarkable. The kidneys demonstrate preserved corticomedullary differentiation without evidence of obstructive uropathy. There is a moderate diffuse amount of stool seen throughout the colon with nonspecific fluid-filled loops of central small bowel which may represent mild enteritis changes. There is a low lying cecum seen within the anterior central pelvis with likely prior appendectomy. The appendix is surgically absent. There is no significant mesenteric, retroperitoneal, or pelvic sidewall lymph nodes. The aorta is nonaneurysmal. There is no significant atherosclerotic disease appreciated. Cystic changes of the right greater than left ovaries are appreciated with multiple dominant follicles. There is no free fluid or free air. The anterior abdominal wall is intact without significant hernias. The lumbar vertebral body heights are grossly maintained with moderate degenerative disc disease. Motion artifact at the level of T12 vertebral body is appreciated. Impression: Demonstration of extensive airspace opacity within the right lung base commensurate with pneumonia. Somewhat low lying cecum within the midline pelvis with prior appendectomy moderate nonspecific fluid distention of the small bowel which can be seen in the setting of enteritis changes. Prior cholecystectomy with moderate reservoir dilatation of the intrahepatic and common bile duct. Please note that all CT scans at this facility use dose modulation, iterative reconstruction, and/or weight-based dosing when appropriate to reduce radiation dose to as low as reasonably achievable. Dictated by Stew Hong MD @ 02/18/2021 10:41:19 AM (Electronically Signed)
[2021-02-18 11:51] VITALS: BP 122/73; PULSE 87
[2021-02-18] MEDS ORDERED: Ketorolac 30 MG/ML SDV IVPUSH ONE (12:12)
== END 2021-02-18 12:39 | disposition home or self-care (01) ==
LOC: JP.ED 06:25
DX: K59.04 Chronic idiopathic constipation (principal); J18.9 Pneumonia, unspecified organism; Z88.5 Allergy status to narcotic agent; Z88.8 Allergy status to other drugs, medicaments and biological substances; Z86.73 Personal history of transient ischemic attack (TIA), and cerebral infarction without residual deficits; Z72.0 Tobacco use
CPT/HCPCS: 36415; 74177; 80053; 81001; 83605; 83690; 84703; 85025; 96365; 96366; 96375; 99284; A9270; J1885; J3010; J3480; J7030; Q9967

== ENCOUNTER 2021-05-26 18:45 | Emergency (ER) | payer MEDICARE, MEDICAID ==
[2021-05-26 18:57] VITALS: BP 124/84; PULSE 106
[2021-05-26] MEDS ORDERED: Ibuprofen 800 MG Tab PO ONE (19:36)
== END 2021-05-26 19:55 | disposition home or self-care (01) ==
LOC: JP.ED 18:45
DX: S80.02XA Contusion of left knee, initial encounter (principal); S70.02XA Contusion of left hip, initial encounter; Z88.5 Allergy status to narcotic agent; Z86.73 Personal history of transient ischemic attack (TIA), and cerebral infarction without residual deficits; Z72.0 Tobacco use; W00.9XXA Unspecified fall due to ice and snow, initial encounter
CPT/HCPCS: 73502-LT; 73562-LT; 99282; 99283-25; A9270-GY

== ENCOUNTER 2021-07-11 23:02 | Emergency (ER) | payer MEDICARE, MEDICAID ==
[2021-07-11] MEDS ORDERED: Ketorolac 30 MG/ML SDV IM ONE (23:19)
[2021-07-12] MEDS ORDERED: Potassium Chloride 20 MEQ Tab.ER PO STA (00:04)
[2021-07-12 00:17] VITALS: BP 115/88; PULSE 85
[2021-07-12] MEDS ORDERED: metroNIDAZOLE 250 MG Tab PO ONE ×2 (00:58)
[2021-07-12] MEDS ORDERED: Doxycycline 100 MG Cap PO ONE (00:58)
[2021-07-12] MEDS ORDERED: CEFTRIAXONE 500 GM IM ONE ×2 (00:58)
[2021-07-12] MEDS ORDERED: LIDOCAINE 1% IM ONE ×2 (00:58)
[2021-07-12] MEDS ORDERED: Potassium Chloride 20 MEQ Tab.ER PO SCH (21:00)
== END 2021-07-12 01:08 | disposition left against medical advice (07) ==
LOC: JP.ED 23:02
DX: N73.0 Acute parametritis and pelvic cellulitis (principal); Z88.5 Allergy status to narcotic agent
CPT/HCPCS: 36415; 74176; 80053; 80305-QW; 81001; 81025; 85025; 86140; 96372; 99281; 99284-25; A9270-GY; J1885

== ENCOUNTER 2021-08-06 08:18 | Emergency (ER) | payer MEDICARE, MEDICAID ==
[2021-08-06 09:45] VITALS: BP 143/77; PULSE 73
== END 2021-08-06 10:29 | disposition home or self-care (01) ==
LOC: JP.ED 08:18
DX: R20.0 Anesthesia of skin (principal); M25.511 Pain in right shoulder; M54.2 Cervicalgia; Z88.5 Allergy status to narcotic agent; Z88.8 Allergy status to other drugs, medicaments and biological substances; Z79.82 Long term (current) use of aspirin; Z86.73 Personal history of transient ischemic attack (TIA), and cerebral infarction without residual deficits; Z72.0 Tobacco use
CPT/HCPCS: 36415; 70450; 70450-26; 72125; 72125-26; 80048; 99282; 99284-25

== ENCOUNTER 2021-10-12 23:58 | Emergency (ER) | payer MEDICARE, MEDICAID ==
[2021-10-13 00:07] VITALS: BP 137/104; PULSE 122
[2021-10-13] MEDS ORDERED: LORazepam 1 MG Tab PO ONE (00:33)
== END 2021-10-13 00:51 | disposition home or self-care (01) ==
LOC: JP.ED 23:58
DX: F41.0 Panic disorder [episodic paroxysmal anxiety] (principal); F43.9 Reaction to severe stress, unspecified; F17.210 Nicotine dependence, cigarettes, uncomplicated; Z88.5 Allergy status to narcotic agent; Z88.8 Allergy status to other drugs, medicaments and biological substances; Z79.82 Long term (current) use of aspirin; Z86.73 Personal history of transient ischemic attack (TIA), and cerebral infarction without residual deficits
CPT/HCPCS: 99283; A9270; 99281

== ENCOUNTER 2021-11-29 13:14 | Emergency (ER) | payer MEDICARE, MEDICAID ==
[2021-11-29 13:24] VITALS: BP 131/83; PULSE 115
== END 2021-11-29 14:45 | disposition home or self-care (01) ==
LOC: JP.ED 13:14
DX: N39.0 Urinary tract infection, site not specified (principal); F17.210 Nicotine dependence, cigarettes, uncomplicated; Z88.6 Allergy status to analgesic agent; Z88.5 Allergy status to narcotic agent; Z88.8 Allergy status to other drugs, medicaments and biological substances; Z79.82 Long term (current) use of aspirin; Z90.49 Acquired absence of other specified parts of digestive tract
CPT/HCPCS: 81001; 99284